=== PATIENT | female | born 1945 | race Caucasian/White ===

== ENCOUNTER 2023-01-23 15:33 | Inpatient (IN) | payer OTHER ==
[2023-01-23] MEDS ORDERED: SODIUM CHLORIDE 0.9% 500 ML INFUS.BAG IV ONE ×3 (16:19→18:13)
[2023-01-23] MEDS ORDERED: ATROPINE SULFATE 1 MG/10 ML DISP.SYRIN IVPUSH ONE ×2 (16:19→19:11)
[2023-01-23] MEDS ORDERED: ATROPINE SULFATE 1 MG/10 ML DISP.SYRIN ONE ×2 (16:20→19:14)
[2023-01-23] MEDS ORDERED: PIPERACILLIN/TAZOB 4.5 GM 4.5 GM/100 ML BAG IVPB ONE (16:52)
[2023-01-23 17:03] LABS: BASO % 0.2 % (0-2.0); HEMATOCRIT 25.6 % (32.4-45.2); HEMOGLOBIN 7.9 GM/dL (10.7-15.3); LYMPH % 6.6 % (8-40); MCH 24.1 pg (25.7-33.7); MEAN CELL VOLUME 77.8 fl (80-96); MEAN PLT VOLUME 8.2 fl (7.5-11.1); NEUT % 87.2 % (42.8-82.8); PLATELET COUNT 358 10^3/uL (134-434); RBC 3.28 M/mm3 (3.60-5.2); RDW 17.8 % (11.6-15.6); WHITE BLOOD COUNT 18.5 K/mm3 (4.0-10.0)
[2023-01-23] MEDS ORDERED: VANCOMYCIN 1 GM in D5W (PRE-DOCKED) 1,000 MG/250 ML (RESTRICTED TO ID ONLY IVPB ONE (17:09)
[2023-01-23 17:10] LABS: VENOUS BASE EXCESS -5.2 mmol/L (-2-2); VENOUS PH 7.309 (7.310-7.410)
[2023-01-23 17:13] LABS: INR 1.06 (0.83-1.09); PROTHROMBIN TIME (PATIENT) 12.3 SEC (9.7-13.0)
[2023-01-23 17:16] LABS: ACTIVATED PTT 28.4 SECONDS (25.2-36.5)
[2023-01-23] MEDS ORDERED: PIPERACILLIN/TAZOB 4.5 GM 4.5 GM in DEXTROSE 5%-WATER 100 ML IVPB ONE (17:18)
[2023-01-23 17:25] LABS: CALCIUM 9.6 mg/dL (8.5-10.1)
[2023-01-23 17:26] LABS: ALBUMIN 2.3 g/dl (3.4-5.0); MAGNESIUM 2.2 mg/dL (1.8-2.4)
[2023-01-23 17:28] LABS: BILIRUBIN,DIRECT 0.2 mg/dL (0.0-0.2)
[2023-01-23 17:29] LABS: PHOSPHOROUS 3.8 mg/dL (2.5-4.9)
[2023-01-23 17:30] LABS: BILIRUBIN,TOTAL 0.5 mg/dL (0.2-1); TOT PROT 7.7 g/dl (6.4-8.2)
[2023-01-23] MEDS ORDERED: DEXAMETHASONE SOD PHOSPHATE 10 MG/1 ML VIAL IVPUSH ONE (17:45)
[2023-01-23 17:51] LABS: EPI CELLS 8 /uL (0-25.1); HYALINE CASTS 1 /uL (0-3.1); PH,URINE 5.5 (5.0-8.0); URINE APPEARANCE TURBID; URINE BACTERIA >9,000 /uL (0-1359); URINE BILIRUBIN NEGATIVE (NEGATIVE); URINE COLOR YELLOW; URINE GLUCOSE (UA) NEGATIVE (NEGATIVE); URINE KETONE TRACE (NEGATIVE); URINE LEUK ESTERASE 3+ (NEGATIVE); URINE NITRITE NEGATIVE (NEGATIVE); URINE PROTEIN TRACE (NEGATIVE); URINE RBC 48 /uL (0-23.9); URINE UROBILINOGEN 0.2 mg/dL (0.2-1.0); URINE WBC 1598 /uL (0-25.8)
[2023-01-23] MEDS ORDERED: VANCOMYCIN/WATER FOR INJ (PEG) 1,000 MG/200 ML BAG IVPB ONE (18:13)
[2023-01-23] MEDS ORDERED: DEXAMETHASONE SOD PHOSPHATE 10 MG/1 ML VIAL ONE (18:13)
[2023-01-23] MEDS ORDERED: NOREPINEPHRINE BITARTRATE 8,000 MCG in DEXTROSE 5%-WATER - 492 ML IV SCH (18:15)
[2023-01-23] MEDS ORDERED: NOREPINEPHRINE BITARTRATE 4,000 MCG in DEXTROSE 5%-WATER - 496 ML IV SCH (18:15)
[2023-01-23] MEDS ORDERED: NOREPINEPHRINE BITARTRATE/D5W 8 MG/250 ML BAG IVPB ONE (18:48)
[2023-01-23] MEDS: NOREPINEPHRINE BITARTRATE/D5W 8 MG/250 ML BAG IVPB SCH (19:02)
[2023-01-23 20:42] LABS: YEAST NONE SEEN (NEGATIVE)
[2023-01-23] MEDS: SODIUM CHLORIDE 1,000 ML IV SCH (21:00)
[2023-01-23 21:33] LABS: MCH 23.9 pg (25.7-33.7); MCHC 30.9 g/dl (32.0-36.0); MEAN CELL VOLUME 77.4 fl (80-96); MEAN PLT VOLUME 7.8 fl (7.5-11.1); PLATELET COUNT 371 10^3/uL (134-434); RBC 3.36 M/mm3 (3.60-5.2); RDW 17.8 % (11.6-15.6); WHITE BLOOD COUNT 22.4 K/mm3 (4.0-10.0)
[2023-01-23] MEDS ORDERED: ACETAMINOPHEN INJECTION 100 ML IVPB ONE (21:55)
[2023-01-23] MEDS ORDERED: ACETAMINOPHEN 1000 MG/100 ML BAG IVPB ONE (21:55)
[2023-01-23 22:11] LABS: ERYTHROCYTE SEDIMENTATION RATE 121 mm/hr (0-30)
[2023-01-23 22:37] LABS: ANISOCYTOSIS 0; HELMET CELLS 0; HOWELL-JOLLY BODIES 0; MACROCYTOSIS 0; OVALOCYTE 0; ROULEAU 0; SICKELED CELLS 0; TARGET CELLS 0; TEAR DROP CELLS 0; TOXIC GRANULATION 0
[2023-01-24] MEDS: VASOPRESSIN 40 UNITS/100 ML BAG IV SCH ×2 (03:00→17:40)
[2023-01-24] MEDS ORDERED: ACETAMINOPHEN 1000 MG/100 ML BAG IVPB STA (06:09)
[2023-01-24] MEDS: MUPIROCIN 2% TOPICAL OINTMENT FOR DECOLONIZATION NS SCH ×3 (07:41→21:11)
[2023-01-24 08:18] LABS: HEMATOCRIT 25.2 % (32.4-45.2); MCH 24.7 pg (25.7-33.7); MCHC 31.7 g/dl (32.0-36.0); MEAN PLT VOLUME 8.6 fl (7.5-11.1); PLATELET COUNT 384 10^3/uL (134-434); RBC 3.23 M/mm3 (3.60-5.2); RDW 17.7 % (11.6-15.6)
[2023-01-24 08:37] LABS: CALCIUM 9.1 mg/dL (8.5-10.1)
[2023-01-24 08:38] LABS: BLOOD UREA NITROGEN 63.9 mg/dL (7-18); MAGNESIUM 2.2 mg/dL (1.8-2.4)
[2023-01-24 08:42] LABS: BILIRUBIN,TOTAL 0.4 mg/dL (0.2-1); TOT PROT 6.8 g/dl (6.4-8.2)
[2023-01-24 08:44] LABS: PHOSPHOROUS 4.1 mg/dL (2.5-4.9)
[2023-01-24 08:52] LABS: ALBUMIN 1.8 g/dl (3.4-5.0); CREATININE 2.8 mg/dL (0.55-1.3)
[2023-01-24] MEDS ORDERED: LEVOTHYROXINE NA 150 MCG TABLET PO ONE (09:00)
[2023-01-24 09:20] LABS: ANISOCYTOSIS 1+; MACROCYTOSIS 0
[2023-01-24] MEDS ORDERED: PIPERACILLIN/TAZOB 3.375 GM 3.375 GM in DEXTROSE 5%-WATER - 50 ML IVPB SCH (10:00)
[2023-01-24] MEDS ORDERED: LEVOTHYROXINE NA 25 MCG TABLET (FP) PO SCH (10:00)
[2023-01-24] MEDS: NOREPINEPHRINE BITARTRATE/D5W 8 MG/250 ML BAG IVPB SCH ×2 (10:06→17:07)
[2023-01-24] MEDS: HYDROCORTISONE SOD SUCCINATE 100 MG/2 ML VIAL IVPUSH SCH ×2 (10:31→17:08)
[2023-01-24] MEDS: FLUDROCORTISONE ACETATE 0.1 MG TABLET (FP) PO SCH (10:31)
[2023-01-24] MEDS: SODIUM CHLORIDE 1,000 ML IV SCH (10:45)
[2023-01-24 11:27] LABS: EPI CELLS 14 /uL (0-25.1); HYALINE CASTS 0 /uL (0-3.1); URINE APPEARANCE TURBID; URINE BACTERIA 3406 /uL (0-1359); URINE BILIRUBIN NEGATIVE (NEGATIVE); URINE COLOR YELLOW; URINE GLUCOSE (UA) NEGATIVE (NEGATIVE); URINE KETONE TRACE (NEGATIVE); URINE LEUK ESTERASE 2+ (NEGATIVE); URINE NITRITE NEGATIVE (NEGATIVE); URINE PROTEIN 1+ (NEGATIVE); URINE UROBILINOGEN 0.2 mg/dL (0.2-1.0); URINE WBC 1409 /uL (0-25.8)
[2023-01-24] MEDS ORDERED: FLU VACC QS2022-23(6MOS UP)/PF 60 MCG/0.5 ML SYRINGE IM ONE (11:30)
[2023-01-24] MEDS ORDERED: PNEUMOC 20-VAL CONJ-DIP CRM/PF 0.5 ML SYRINGE IM ONE (11:30)
[2023-01-24 11:47] LABS: URINE RBC 87.9 /uL (0-23.9)
[2023-01-24 11:48] LABS: YEAST NEGATIVE (NEGATIVE)
[2023-01-24] MEDS: PANTOPRAZOLE SODIUM 40 MG VIAL IVPUSH SCH (13:53)
[2023-01-24] MEDS: LACTATED RINGERS SOLUTION 1,000 ML/1,000 ML INFUS.BAG IV SCH (13:53)
[2023-01-24] MEDS: HEPARIN NA (PORCINE) 5,000 UNITS/ML 1ML VIAL SQ SCH ×2 (13:53→21:11)
[2023-01-24] MEDS: PIPERACILLIN/TAZOB 2.25 GM 2.25 GM in DEXTROSE 5%-WATER - 50 ML IVPB SCH ×2 (15:15→21:11)
[2023-01-24] MEDS: ACETAMINOPHEN 1000 MG/100 ML BAG IVPB PRN (15:30)
[2023-01-24] MEDS: CHLORHEXIDINE GLUCONATE 4% CLEANSER FOR DECOLONIZATION TP SCH (21:11)
[2023-01-25] MEDS: ACETAMINOPHEN 1000 MG/100 ML BAG IVPB PRN ×2 (00:09→07:42)
[2023-01-25] MEDS: NOREPINEPHRINE BITARTRATE/D5W 8 MG/250 ML BAG IVPB SCH ×3 (00:50→14:30)
[2023-01-25] MEDS: HYDROCORTISONE SOD SUCCINATE 100 MG/2 ML VIAL IVPUSH SCH ×3 (01:02→16:52)
[2023-01-25] MEDS: PIPERACILLIN/TAZOB 2.25 GM 2.25 GM in DEXTROSE 5%-WATER - 50 ML IVPB SCH ×4 (02:02→21:18)
[2023-01-25] MEDS: HEPARIN NA (PORCINE) 5,000 UNITS/ML 1ML VIAL SQ SCH ×2 (06:26→13:02)
[2023-01-25] MEDS: LEVOTHYROXINE NA 150 MCG TABLET PO SCH (06:26)
[2023-01-25] MEDS: VASOPRESSIN 40 UNITS/100 ML BAG IV SCH ×2 (06:27→07:42)
[2023-01-25 07:07] LABS: BASO % 0.1 % (0-2.0); HEMATOCRIT 24.1 % (32.4-45.2); HEMOGLOBIN 7.6 GM/dL (10.7-15.3); LYMPH % 4.4 % (8-40); MCHC 31.6 g/dl (32.0-36.0); MEAN CELL VOLUME 76.1 fl (80-96); MEAN PLT VOLUME 8.4 fl (7.5-11.1); MONO % 3.5 % (3.8-10.2); PLATELET COUNT 346 10^3/uL (134-434); RBC 3.17 M/mm3 (3.60-5.2); RDW 18.3 % (11.6-15.6)
[2023-01-25 07:29] LABS: CALCIUM 8.7 mg/dL (8.5-10.1)
[2023-01-25 07:30] LABS: ALBUMIN 1.8 g/dl (3.4-5.0); BLOOD UREA NITROGEN 65.7 mg/dL (7-18)
[2023-01-25 07:33] LABS: CREATININE 2.7 mg/dL (0.55-1.3)
[2023-01-25 07:34] LABS: BILIRUBIN,TOTAL 0.4 mg/dL (0.2-1); TOT PROT 6.6 g/dl (6.4-8.2)
[2023-01-25] MEDS ORDERED: TRIMETHOBENZAMIDE HCL 200MG/2ML INJ IM ONE (08:15)
[2023-01-25] MEDS: PANTOPRAZOLE SODIUM 40 MG VIAL IVPUSH SCH (09:14)
[2023-01-25] MEDS: MUPIROCIN 2% TOPICAL OINTMENT FOR DECOLONIZATION NS SCH ×2 (09:14→21:18)
[2023-01-25] MEDS: FLUDROCORTISONE ACETATE 0.1 MG TABLET (FP) PO SCH (09:14)
[2023-01-25] MEDS: COLLAGENASE CLOSTRIDIUM HIST. 30 GRAMS TUBE TP SCH (10:05)
[2023-01-25] MEDS: FENTANYL CITRATE/PF 50 MCG/ML VIAL IVPUSH PRN ×4 (10:11→22:35)
[2023-01-25 10:23] LABS: ANISOCYTOSIS 0; HELMET CELLS 0; HOWELL-JOLLY BODIES 0; MACROCYTOSIS 0; OVALOCYTE 0; ROULEAU 0; SICKELED CELLS 0; TARGET CELLS 0; TEAR DROP CELLS 0; TOXIC GRANULATION 0
[2023-01-25] MEDS: LACTATED RINGERS SOLUTION 1,000 ML/1,000 ML INFUS.BAG IV SCH (16:52)
[2023-01-25] MEDS ORDERED: HEPARIN NA (PORCINE) 5,000 UNITS/ML 1ML VIAL IVPUSH PRN (17:44)
[2023-01-25] MEDS: HEPARIN INFUSION - 25,000 UNITS/500 ML INFUS.BAG IVPB SCH (18:05)
[2023-01-25] MEDS: CHLORHEXIDINE GLUCONATE 4% CLEANSER FOR DECOLONIZATION TP SCH (21:18)
[2023-01-26] MEDS: ACETAMINOPHEN 1000 MG/100 ML BAG IVPB PRN ×2 (00:05→14:30)
[2023-01-26] MEDS: HEPARIN NA (PORCINE) 5,000 UNITS/ML 1ML VIAL IVPUSH PRN (00:52)
[2023-01-26] MEDS: HYDROCORTISONE SOD SUCCINATE 100 MG/2 ML VIAL IVPUSH SCH ×3 (01:12→21:03)
[2023-01-26] MEDS: PIPERACILLIN/TAZOB 2.25 GM 2.25 GM in DEXTROSE 5%-WATER - 50 ML IVPB SCH ×4 (03:43→21:00)
[2023-01-26] MEDS: LEVOTHYROXINE NA 150 MCG TABLET PO SCH (06:30)
[2023-01-26 07:12] LABS: CALCIUM 8.5 mg/dL (8.5-10.1)
[2023-01-26 07:13] LABS: ALBUMIN 1.5 g/dl (3.4-5.0); BLOOD UREA NITROGEN 63.3 mg/dL (7-18); CHOLESTEROL 67 mg/dL (50-200)
[2023-01-26 07:15] LABS: LDL CHOLESTEROL (ONLY SJRH) 30 mg/dL (5-100)
[2023-01-26 07:16] LABS: CREATININE 2.4 mg/dL (0.55-1.3)
[2023-01-26 07:17] LABS: BILIRUBIN,TOTAL 0.3 mg/dL (0.2-1); HDL CHOLESTEROL 15 mg/dL (40-60)
[2023-01-26 07:18] LABS: TOT PROT 5.7 g/dl (6.4-8.2)
[2023-01-26 08:16] LABS: BASO % 0.1 % (0-2.0); HEMATOCRIT 24.2 % (32.4-45.2); HEMOGLOBIN 7.5 GM/dL (10.7-15.3); LYMPH % 6.6 % (8-40); MCH 23.6 pg (25.7-33.7); MCHC 30.9 g/dl (32.0-36.0); MEAN CELL VOLUME 76.4 fl (80-96); MEAN PLT VOLUME 8.1 fl (7.5-11.1); MONO % 2.1 % (3.8-10.2); NEUT % 91.2 % (42.8-82.8); PLATELET COUNT 269 10^3/uL (134-434); RBC 3.17 M/mm3 (3.60-5.2); RDW 18.4 % (11.6-15.6); WHITE BLOOD COUNT 14.1 K/mm3 (4.0-10.0)
[2023-01-26] MEDS ORDERED: PIPERACILLIN/TAZOBACTAM 2.25 GM VIAL IVPB ONE (09:04)
[2023-01-26] MEDS: FLUDROCORTISONE ACETATE 0.1 MG TABLET (FP) PO SCH (09:16)
[2023-01-26] MEDS: MUPIROCIN 2% TOPICAL OINTMENT FOR DECOLONIZATION NS SCH ×2 (09:17→21:03)
[2023-01-26] MEDS: COLLAGENASE CLOSTRIDIUM HIST. 30 GRAMS TUBE TP SCH (09:17)
[2023-01-26] MEDS: VASOPRESSIN 40 UNITS/100 ML BAG IV SCH (09:17)
[2023-01-26] MEDS: PANTOPRAZOLE SODIUM 40 MG VIAL IVPUSH SCH (09:17)
[2023-01-26 10:16] LABS: ANISOCYTOSIS 2+; MACROCYTOSIS 1+
[2023-01-26] MEDS: NOREPINEPHRINE BITARTRATE/D5W 8 MG/250 ML BAG IVPB SCH ×2 (15:01→21:01)
[2023-01-26] MEDS: HEPARIN INFUSION - 25,000 UNITS/500 ML INFUS.BAG IVPB SCH ×2 (15:01→21:02)
[2023-01-26] MEDS: AMINO ACIDS/PROTEIN HYDROLYS 30 ML LIQUID.PKT PO SCH (16:36)
[2023-01-26] MEDS: LACTATED RINGERS SOLUTION 1,000 ML/1,000 ML INFUS.BAG IV SCH (21:02)
[2023-01-26] MEDS: CHLORHEXIDINE GLUCONATE 4% CLEANSER FOR DECOLONIZATION TP SCH (21:03)
[2023-01-26] MEDS: ASCORBIC ACID 500 MG TABLET (FP) PO SCH (21:04)
[2023-01-27] MEDS: VASOPRESSIN 40 UNITS/100 ML BAG IV SCH (02:15)
[2023-01-27] MEDS: PIPERACILLIN/TAZOB 2.25 GM 2.25 GM in DEXTROSE 5%-WATER - 50 ML IVPB SCH ×4 (02:16→21:11)
[2023-01-27] MEDS: LEVOTHYROXINE NA 150 MCG TABLET PO SCH (06:06)
[2023-01-27 06:34] LABS: HEMATOCRIT 24.5 % (32.4-45.2); HEMOGLOBIN 7.7 GM/dL (10.7-15.3); MCH 24.2 pg (25.7-33.7); MCHC 31.3 g/dl (32.0-36.0); MEAN CELL VOLUME 77.3 fl (80-96); MEAN PLT VOLUME 7.9 fl (7.5-11.1); PLATELET COUNT 229 10^3/uL (134-434); RBC 3.16 M/mm3 (3.60-5.2); RDW 18.5 % (11.6-15.6); WHITE BLOOD COUNT 12.2 K/mm3 (4.0-10.0)
[2023-01-27 06:55] LABS: CHLORIDE 111 mmol/L (98-107); SODIUM 140 mmol/L (136-145)
[2023-01-27 07:04] LABS: ALBUMIN 1.2 g/dl (3.4-5.0); ANION GAP 9 MMOL/L (8-16); BLOOD UREA NITROGEN 66.5 mg/dL (7-18); CALCIUM 8.5 mg/dL (8.5-10.1); CO2 20 mmol/L (21-32); GLUCOSE,RANDOM 80 mg/dL (74-106)
[2023-01-27 07:07] LABS: CREATININE 2.4 mg/dL (0.55-1.3); SGPT/ALT 11 U/L (13-61)
[2023-01-27 07:08] LABS: SGOT/AST 14 U/L (15-37)
[2023-01-27 07:09] LABS: BILIRUBIN,TOTAL 0.3 mg/dL (0.2-1); TOT PROT 5.1 g/dl (6.4-8.2)
[2023-01-27 07:12] LABS: ALK PHOS 96 U/L (45-117)
[2023-01-27] MEDS: HEPARIN NA (PORCINE) 5,000 UNITS/ML 1ML VIAL IVPUSH PRN (07:38)
[2023-01-27] MEDS ORDERED: ACETAMINOPHEN 1000 MG/100 ML BAG IVPB PRN (07:44)
[2023-01-27 09:01] LABS: ANISOCYTOSIS 1+; MACROCYTOSIS 0
[2023-01-27] MEDS: HYDROCORTISONE SOD SUCCINATE 100 MG/2 ML VIAL IVPUSH SCH ×2 (09:25→21:12)
[2023-01-27] MEDS: ASCORBIC ACID 500 MG TABLET (FP) PO SCH ×2 (09:25→21:12)
[2023-01-27] MEDS: ACETAMINOPHEN 1000 MG/100 ML BAG IVPB PRN ×2 (09:25→17:23)
[2023-01-27] MEDS: MULTIVITAMINS (DAILY MVI) TABLET (FP) PO SCH (09:25)
[2023-01-27] MEDS: PANTOPRAZOLE SODIUM 40 MG VIAL IVPUSH SCH (09:25)
[2023-01-27] MEDS: AMINO ACIDS/PROTEIN HYDROLYS 30 ML LIQUID.PKT PO SCH ×2 (09:25→17:06)
[2023-01-27] MEDS: FLUDROCORTISONE ACETATE 0.1 MG TABLET (FP) PO SCH ×2 (09:25→12:02)
[2023-01-27] MEDS: ZINC SULFATE 220 MG CAPSULE (FP) PO SCH (09:26)
[2023-01-27] MEDS: MUPIROCIN 2% TOPICAL OINTMENT FOR DECOLONIZATION NS SCH ×2 (09:26→21:12)
[2023-01-27] MEDS: COLLAGENASE CLOSTRIDIUM HIST. 30 GRAMS TUBE TP SCH (09:26)
[2023-01-27] MEDS: LACTATED RINGERS SOLUTION 1,000 ML/1,000 ML INFUS.BAG IV SCH ×2 (09:26→14:27)
[2023-01-27] MEDS ORDERED: LACTATED RINGERS SOLUTION 1,000 ML/1,000 ML INFUS.BAG IV STA (10:16)
[2023-01-27] MEDS ORDERED: LACTATED RINGERS SOLUTION 1,000 ML/1,000 ML INFUS.BAG IV ONE (10:18)
[2023-01-27] MEDS: FENTANYL CITRATE/PF 50 MCG/ML VIAL IVPUSH PRN ×2 (12:02→15:52)
[2023-01-27] MEDS: HEPARIN INFUSION - 25,000 UNITS/500 ML INFUS.BAG IVPB SCH ×2 (14:29→19:15)
[2023-01-27] MEDS ORDERED: FENTANYL CITRATE/PF 50 MCG/ML VIAL IVPUSH ONE (18:06)
[2023-01-27] MEDS: NOREPINEPHRINE BITARTRATE/D5W 8 MG/250 ML BAG IVPB SCH (19:15)
[2023-01-27] MEDS: CHLORHEXIDINE GLUCONATE 4% CLEANSER FOR DECOLONIZATION TP SCH (21:12)
[2023-01-28] MEDS: FENTANYL CITRATE/PF 50 MCG/ML VIAL IVPUSH PRN (01:58)
[2023-01-28] MEDS: VASOPRESSIN 40 UNITS/100 ML BAG IV SCH (02:15)
[2023-01-28] MEDS: PIPERACILLIN/TAZOB 2.25 GM 2.25 GM in DEXTROSE 5%-WATER - 50 ML IVPB SCH ×4 (02:41→21:00)
[2023-01-28] MEDS: LEVOTHYROXINE NA 150 MCG TABLET PO SCH (06:05)
[2023-01-28] MEDS: ACETAMINOPHEN 1000 MG/100 ML BAG IVPB PRN ×2 (06:49→15:44)
[2023-01-28 07:14] LABS: MCH 23.3 pg (25.7-33.7); MCHC 30.5 g/dl (32.0-36.0); MEAN CELL VOLUME 76.4 fl (80-96); MEAN PLT VOLUME 8.9 fl (7.5-11.1); PLATELET COUNT 190 10^3/uL (134-434); RDW 18.4 % (11.6-15.6); WHITE BLOOD COUNT 11.1 K/mm3 (4.0-10.0)
[2023-01-28 07:26] LABS: CALCIUM 8.5 mg/dL (8.5-10.1)
[2023-01-28 07:27] LABS: ALBUMIN 1.2 g/dl (3.4-5.0); BLOOD UREA NITROGEN 72.7 mg/dL (7-18)
[2023-01-28 07:30] LABS: CREATININE 2.7 mg/dL (0.55-1.3)
[2023-01-28 07:32] LABS: BILIRUBIN,TOTAL 0.3 mg/dL (0.2-1); TOT PROT 5.1 g/dl (6.4-8.2)
[2023-01-28] MEDS: AMINO ACIDS/PROTEIN HYDROLYS 30 ML LIQUID.PKT PO SCH ×2 (08:55→17:44)
[2023-01-28] MEDS: MUPIROCIN 2% TOPICAL OINTMENT FOR DECOLONIZATION NS SCH (09:07)
[2023-01-28] MEDS: HYDROCORTISONE SOD SUCCINATE 100 MG/2 ML VIAL IVPUSH SCH ×2 (09:08→22:00)
[2023-01-28] MEDS: ASCORBIC ACID 500 MG TABLET (FP) PO SCH ×2 (09:08→22:33)
[2023-01-28] MEDS: PANTOPRAZOLE SODIUM 40 MG VIAL IVPUSH SCH (09:08)
[2023-01-28] MEDS: FLUDROCORTISONE ACETATE 0.1 MG TABLET (FP) PO SCH (09:08)
[2023-01-28] MEDS: MULTIVITAMINS (DAILY MVI) TABLET (FP) PO SCH (09:08)
[2023-01-28] MEDS: ZINC SULFATE 220 MG CAPSULE (FP) PO SCH (09:08)
[2023-01-28 09:09] LABS: ANISOCYTOSIS 0; HELMET CELLS 0; HOWELL-JOLLY BODIES 0; MACROCYTOSIS 0; OVALOCYTE 0; ROULEAU 0; SICKELED CELLS 0; TARGET CELLS 0; TEAR DROP CELLS 0; TOXIC GRANULATION 0
[2023-01-28] MEDS: COLLAGENASE CLOSTRIDIUM HIST. 30 GRAMS TUBE TP SCH (09:09)
[2023-01-28] MEDS: HYDROmorphone HCl 2 MG/ML VIAL IVPUSH PRN ×2 (09:34→19:45)
[2023-01-28] MEDS: HEPARIN INFUSION - 25,000 UNITS/500 ML INFUS.BAG IVPB SCH (17:44)
[2023-01-28] MEDS: CHLORHEXIDINE GLUCONATE 4% CLEANSER FOR DECOLONIZATION TP SCH (22:00)
[2023-01-28] MEDS ORDERED: SODIUM CHLORIDE 1,000 ML IV STA (22:30)
[2023-01-29] MEDS ORDERED: PHENYLEPHRINE HCL 10 MG/1 ML SINGLE DOSE VIAL ONE ×2 (00:28→06:12)
[2023-01-29] MEDS ORDERED: PHENYLEPHRINE NS PREMIX 50,000 MCG/500 ML BAG CVP SCH (00:30)
[2023-01-29] MEDS: PIPERACILLIN/TAZOB 2.25 GM 2.25 GM in DEXTROSE 5%-WATER - 50 ML IVPB SCH ×2 (02:01→09:11)
[2023-01-29] MEDS: LEVOTHYROXINE NA 150 MCG TABLET PO SCH (06:21)
[2023-01-29 07:44] LABS: HEMOGLOBIN 9.5 GM/dL (10.7-15.3); MCH 24.3 pg (25.7-33.7); MCHC 31.5 g/dl (32.0-36.0); MEAN PLT VOLUME 8.6 fl (7.5-11.1); PLATELET COUNT 300 10^3/uL (134-434); RDW 18.6 % (11.6-15.6); WHITE BLOOD COUNT 27.4 K/mm3 (4.0-10.0)
[2023-01-29 07:58] LABS: CALCIUM 9.3 mg/dL (8.5-10.1)
[2023-01-29 08:01] LABS: ALBUMIN 1.4 g/dl (3.4-5.0)
[2023-01-29 08:02] LABS: BLOOD UREA NITROGEN 77.9 mg/dL (7-18)
[2023-01-29 08:05] LABS: CREATININE 2.8 mg/dL (0.55-1.3)
[2023-01-29 08:06] LABS: BILIRUBIN,TOTAL 0.5 mg/dL (0.2-1); TOT PROT 5.8 g/dl (6.4-8.2)
[2023-01-29 08:30] LABS: ANISOCYTOSIS 0; HELMET CELLS 0; HOWELL-JOLLY BODIES 0; MACROCYTOSIS 0; OVALOCYTE 0; ROULEAU 0; SICKELED CELLS 0; TARGET CELLS 0; TEAR DROP CELLS 0; TOXIC GRANULATION 0
[2023-01-29] MEDS: AMINO ACIDS/PROTEIN HYDROLYS 30 ML LIQUID.PKT PO SCH ×2 (08:50→17:08)
[2023-01-29] MEDS: PANTOPRAZOLE SODIUM 40 MG VIAL IVPUSH SCH (09:11)
[2023-01-29] MEDS: HYDROCORTISONE SOD SUCCINATE 100 MG/2 ML VIAL IVPUSH SCH (09:11)
[2023-01-29] MEDS: ASCORBIC ACID 500 MG TABLET (FP) PO SCH (09:12)
[2023-01-29] MEDS: MIDODRINE HCL 5 MG TABLET PO SCH ×2 (09:12→14:03)
[2023-01-29] MEDS: ZINC SULFATE 220 MG CAPSULE (FP) PO SCH (09:13)
[2023-01-29] MEDS: MULTIVITAMINS (DAILY MVI) TABLET (FP) PO SCH (09:13)
[2023-01-29] MEDS: FLUDROCORTISONE ACETATE 0.1 MG TABLET (FP) PO SCH (09:14)
[2023-01-29] MEDS ORDERED: NOREPINEPHRINE 0.9 % NACL 8 MG/250 ML BAG IVPB SCH (10:45)
[2023-01-29] MEDS ORDERED: MEROPENEM 500 MG in DEXTROSE 5%-WATER 100 ML IVPB SCH (11:00)
[2023-01-29] MEDS: ACETAMINOPHEN 1000 MG/100 ML BAG IVPB PRN (11:58)
[2023-01-29] MEDS: COLLAGENASE CLOSTRIDIUM HIST. 30 GRAMS TUBE TP SCH (14:55)
[2023-01-29] MEDS ORDERED: VANCOMYCIN/WATER FOR INJ (PEG) 1,000 MG/200 ML BAG IVPB ONE (14:58)
[2023-01-29] MEDS ORDERED: HYDROmorphone HCl 2 MG/ML VIAL IVPUSH PRN (17:04)
[2023-01-29] MEDS ORDERED: ROCURONIUM BROMIDE 50 MG/5 ML SYRINGE ONE ×3 (17:09→20:37)
[2023-01-29] MEDS ORDERED: LIDOCAINE HCL/PF 2% SDV 5ML VIAL ONE (17:10)
[2023-01-29] MEDS ORDERED: ETOMIDATE 20 MG/10 ML VIAL IVPUSH ONE (17:10)
[2023-01-29] MEDS ORDERED: MIDAZOLAM HCL 2 MG/2 ML SINGLE DOSE VIAL ONE ×2 (18:40→20:36)
[2023-01-29] MEDS ORDERED: ALBUMIN HUMAN 5% 250 ML IV SOLUTION IV ONE ×4 (20:45→22:30)
[2023-01-29] MEDS ORDERED: PROMETHAZINE HCL 25 MG/1 ML VIAL IVPB PRN (22:35)
[2023-01-29] MEDS ORDERED: ONDANSETRON 4 MG/2 ML VIAL IVPUSH PRN (22:35)
[2023-01-29] MEDS ORDERED: ACETAMINOPHEN 1000 MG/100 ML BAG IVPB PRN (22:42)
[2023-01-29] MEDS ORDERED: SODIUM CHLORIDE 1,000 ML IV SCH (22:45)
[2023-01-29] MEDS ORDERED: MEROPENEM 1 GM in DEXTROSE 5%-WATER 100 ML IVPB SCH (23:00)
[2023-01-29] MEDS: NOREPINEPHRINE 0.9 % NACL 8 MG/250 ML BAG IVPB SCH (23:22)
[2023-01-29] MEDS: MEROPENEM 1 GM in DEXTROSE 5%-WATER 100 ML IVPB SCH (23:22)
[2023-01-29] MEDS: VASOPRESSIN 40 UNITS/100 ML BAG IV SCH ×2 (23:23)
[2023-01-29 23:24] LABS: BASO % 0.1 % (0-2.0); LYMPH % 3.2 % (8-40); MCH 23.5 pg (25.7-33.7); MCHC 29.8 g/dl (32.0-36.0); MEAN CELL VOLUME 78.9 fl (80-96); MEAN PLT VOLUME 7.8 fl (7.5-11.1); NEUT % 94.7 % (42.8-82.8); PLATELET COUNT 257 10^3/uL (134-434); RBC 3.42 M/mm3 (3.60-5.2); RDW 18.5 % (11.6-15.6)
[2023-01-29] MEDS: SODIUM CHLORIDE 1,000 ML IV SCH (23:24)
[2023-01-29 23:25] LABS: WHITE BLOOD COUNT 34.7 K/mm3 (4.0-10.0)
[2023-01-29 23:48] LABS: CALCIUM 8.4 mg/dL (8.5-10.1)
[2023-01-29 23:49] LABS: BLOOD UREA NITROGEN 80.3 mg/dL (7-18)
[2023-01-29 23:52] LABS: CREATININE 2.9 mg/dL (0.55-1.3)
[2023-01-30] MEDS: NOREPINEPHRINE 0.9 % NACL 8 MG/250 ML BAG IVPB SCH ×5 (06:13→23:15)
[2023-01-30 07:03] LABS: BASO % 0.1 % (0-2.0); HEMATOCRIT 26.5 % (32.4-45.2); HEMOGLOBIN 8.1 GM/dL (10.7-15.3); LYMPH % 3.3 % (8-40); MCH 24.1 pg (25.7-33.7); MCHC 30.4 g/dl (32.0-36.0); MEAN CELL VOLUME 79.1 fl (80-96); MEAN PLT VOLUME 8.3 fl (7.5-11.1); MONO % 2.2 % (3.8-10.2); NEUT % 94.4 % (42.8-82.8); PLATELET COUNT 262 10^3/uL (134-434); RBC 3.35 M/mm3 (3.60-5.2); RDW 18.8 % (11.6-15.6)
[2023-01-30 07:14] LABS: WHITE BLOOD COUNT 33.2 K/mm3 (4.0-10.0)
[2023-01-30 07:23] LABS: BLOOD UREA NITROGEN 81.9 mg/dL (7-18); CALCIUM 8.8 mg/dL (8.5-10.1)
[2023-01-30 07:27] LABS: BILIRUBIN,TOTAL 0.4 mg/dL (0.2-1); TOT PROT 5.2 g/dl (6.4-8.2)
[2023-01-30 07:29] LABS: ALBUMIN 1.9 g/dl (3.4-5.0)
[2023-01-30 08:46] LABS: ANISOCYTOSIS 1+; MACROCYTOSIS 0
[2023-01-30] MEDS ORDERED: SODIUM CHLORIDE 1,000 ML IV STA (09:01)
[2023-01-30] MEDS: MUPIROCIN 2% TOPICAL OINTMENT FOR DECOLONIZATION NS SCH ×2 (09:55→21:46)
[2023-01-30] MEDS ORDERED: HYDROCORTISONE SOD SUCCINATE 100 MG/2 ML VIAL IVPUSH SCH (10:00)
[2023-01-30] MEDS: PANTOPRAZOLE SODIUM 40 MG VIAL IVPUSH SCH (10:40)
[2023-01-30] MEDS: COLLAGENASE CLOSTRIDIUM HIST. 30 GRAMS TUBE TP SCH (10:40)
[2023-01-30] MEDS: HEPARIN NA (PORCINE) 5,000 UNITS/ML 1ML VIAL SQ SCH ×2 (10:40→21:47)
[2023-01-30] MEDS: MEROPENEM 1 GM in DEXTROSE 5%-WATER 100 ML IVPB SCH ×2 (11:28→22:07)
[2023-01-30] MEDS: HYDROCORTISONE SOD SUCCINATE 100 MG/2 ML VIAL IVPUSH SCH ×2 (15:49→21:46)
[2023-01-30 16:02] VITALS: BMI 44.8
[2023-01-30] MEDS: HYDROmorphone HCl 2 MG/ML VIAL IVPUSH PRN ×2 (16:39→21:58)
[2023-01-30] MEDS ORDERED: VANCOMYCIN 1 GM/200 ML PREMIX BAG (RESTRICTED TO ID ONLY) IVPB ONE (18:31)
[2023-01-30] MEDS: LEVOTHYROXINE SODIUM 100 MCG 5 ML VIAL IVPUSH SCH (18:59)
[2023-01-30] MEDS ORDERED: LACTATED RINGERS SOLUTION 1000 ML INFUS.BAG IV ONE (19:25)
[2023-01-30] MEDS: CHLORHEXIDINE GLUCONATE 4% CLEANSER FOR DECOLONIZATION TP SCH (21:47)
[2023-01-30] MEDS: VASOPRESSIN 40 UNITS/100 ML BAG IV SCH (23:00)
[2023-01-30] MEDS: SODIUM CHLORIDE 1,000 ML IV SCH (23:45)
[2023-01-31] MEDS: HYDROCORTISONE SOD SUCCINATE 100 MG/2 ML VIAL IVPUSH SCH ×4 (02:05→21:49)
[2023-01-31] MEDS: NOREPINEPHRINE 0.9 % NACL 8 MG/250 ML BAG IVPB SCH ×3 (02:10→22:25)
[2023-01-31] MEDS: SODIUM CHLORIDE 1,000 ML IV SCH ×2 (04:35→10:22)
[2023-01-31] MEDS: HYDROmorphone HCl 2 MG/ML VIAL IVPUSH PRN (04:48)
[2023-01-31 08:04] LABS: ALBUMIN 1.6 g/dl (3.4-5.0); BLOOD UREA NITROGEN 82.4 mg/dL (7-18); CALCIUM 8.7 mg/dL (8.5-10.1)
[2023-01-31 08:08] LABS: CREATININE 2.6 mg/dL (0.55-1.3)
[2023-01-31 08:09] LABS: HEMATOCRIT 26.7 % (32.4-45.2); MCH 23.8 pg (25.7-33.7); MCHC 30.1 g/dl (32.0-36.0); MEAN CELL VOLUME 78.8 fl (80-96); MEAN PLT VOLUME 7.9 fl (7.5-11.1); PLATELET COUNT 210 10^3/uL (134-434); RBC 3.38 M/mm3 (3.60-5.2); RDW 18.8 % (11.6-15.6); WHITE BLOOD COUNT 28.6 K/mm3 (4.0-10.0)
[2023-01-31 08:10] LABS: BILIRUBIN,TOTAL 0.5 mg/dL (0.2-1); INR 1.16 (0.83-1.09); PROTHROMBIN TIME (PATIENT) 13.4 SEC (9.7-13.0); TOT PROT 5.2 g/dl (6.4-8.2)
[2023-01-31 08:13] LABS: ACTIVATED PTT 32.7 SECONDS (25.2-36.5)
[2023-01-31] MEDS: HEPARIN NA (PORCINE) 5,000 UNITS/ML 1ML VIAL SQ SCH ×2 (09:20→21:50)
[2023-01-31] MEDS: PANTOPRAZOLE SODIUM 40 MG VIAL IVPUSH SCH (09:24)
[2023-01-31] MEDS: LEVOTHYROXINE SODIUM 100 MCG 5 ML VIAL IVPUSH SCH (09:25)
[2023-01-31] MEDS: VASOPRESSIN 40 UNITS/100 ML BAG IV SCH ×3 (09:26→22:30)
[2023-01-31 10:05] LABS: ANISOCYTOSIS 0; HELMET CELLS 0; HOWELL-JOLLY BODIES 0; MACROCYTOSIS 0; OVALOCYTE 0; ROULEAU 0; SICKELED CELLS 0; TARGET CELLS 0; TEAR DROP CELLS 0; TOXIC GRANULATION 0
[2023-01-31] MEDS: MEROPENEM 1 GM in DEXTROSE 5%-WATER 100 ML IVPB SCH ×2 (10:19→22:00)
[2023-01-31] MEDS: MUPIROCIN 2% TOPICAL OINTMENT FOR DECOLONIZATION NS SCH ×2 (10:20→21:50)
[2023-01-31] MEDS: COLLAGENASE CLOSTRIDIUM HIST. 30 GRAMS TUBE TP SCH (10:21)
[2023-01-31] MEDS ORDERED: MIDAZOLAM 100 MG in SODIUM CHLORIDE 100 ML IVPB SCH (12:00)
[2023-01-31] MEDS ORDERED: FENTANYL NS IVPB 500 MCG/100 ML BAG IVPB SCH ×2 (12:00→15:04)
[2023-01-31] MEDS ORDERED: MIDAZOLAM IN 0.9 % SOD.CHLORID 100 MG/100 ML PLAST..BAG IVPB SCH (12:17)
[2023-01-31 12:26] LABS: MAGNESIUM 2.2 mg/dL (1.8-2.4)
[2023-01-31 12:53] LABS: ARTERIAL BLD GAS O2 SATURATION 99.1 % (95-98); ARTERIAL BLOOD GAS BASE EXCESS -10.5 mmol/L (-2-2); ARTERIAL BLOOD GAS PO2 179.4 mmHg (80-100); ARTERIAL BLOOD GAS pH 7.297 (7.350-7.450)
[2023-01-31 12:55] LABS: ALLENS TEST POSITIVE
[2023-01-31 12:56] LABS: VENT MODE AC; VENT RATE 12
[2023-01-31] MEDS: KCL 10 MEQ IVPB 10 MEQ/100 ML INFUS.BAG IVPB SCH ×3 (14:38→16:25)
[2023-01-31] MEDS ORDERED: AMINO ACIDS 4.25%/D5W 1,000 ML IV SCH (14:45)
[2023-01-31] MEDS ORDERED: MIDAZOLAM IN 0.9 % SOD.CHLORID 1 MG/1 ML PLAST..BAG ONE (14:46)
[2023-01-31] MEDS: FENTANYL NS IVPB 500 MCG/100 ML BAG IVPB SCH ×2 (15:00→23:30)
[2023-01-31] MEDS ORDERED: MULTIVIT INJ. ADULT COMBO WITH VIT K 1 COMBO 10 ML VIAL IV SCH (15:00)
[2023-01-31 20:11] LABS: ANTIGLOMERULAR BASEMENT MEN.AB <0.2 units (0.0-0.9)
[2023-01-31] MEDS: CHLORHEXIDINE GLUCONATE 4% CLEANSER FOR DECOLONIZATION TP SCH (21:51)
[2023-02-01] MEDS: SODIUM CHLORIDE 1,000 ML IV SCH ×2 (01:30→11:23)
[2023-02-01] MEDS: HYDROCORTISONE SOD SUCCINATE 100 MG/2 ML VIAL IVPUSH SCH ×4 (02:40→21:32)
[2023-02-01] MEDS: NOREPINEPHRINE 0.9 % NACL 8 MG/250 ML BAG IVPB SCH (04:39)
[2023-02-01 08:15] LABS: HEMATOCRIT 26.7 % (32.4-45.2); HEMOGLOBIN 8.1 GM/dL (10.7-15.3); MCH 23.8 pg (25.7-33.7); MCHC 30.3 g/dl (32.0-36.0); MEAN CELL VOLUME 78.8 fl (80-96); MEAN PLT VOLUME 8.1 fl (7.5-11.1); PLATELET COUNT 192 10^3/uL (134-434); RBC 3.38 M/mm3 (3.60-5.2); RDW 19.6 % (11.6-15.6); WHITE BLOOD COUNT 27.8 K/mm3 (4.0-10.0)
[2023-02-01 08:26] LABS: CALCIUM 9.1 mg/dL (8.5-10.1)
[2023-02-01 08:27] LABS: MAGNESIUM 2.3 mg/dL (1.8-2.4)
[2023-02-01 08:29] LABS: ALBUMIN 1.6 g/dl (3.4-5.0); BLOOD UREA NITROGEN 85.2 mg/dL (7-18)
[2023-02-01 08:30] LABS: CREATININE 2.1 mg/dL (0.55-1.3)
[2023-02-01 08:32] LABS: BILIRUBIN,TOTAL 0.4 mg/dL (0.2-1); TOT PROT 5.2 g/dl (6.4-8.2)
[2023-02-01 10:32] LABS: ANISOCYTOSIS 2+; MACROCYTOSIS 0
[2023-02-01] MEDS: MEROPENEM 1 GM in DEXTROSE 5%-WATER 100 ML IVPB SCH ×2 (11:19→23:20)
[2023-02-01] MEDS: PANTOPRAZOLE SODIUM 40 MG VIAL IVPUSH SCH (11:22)
[2023-02-01] MEDS: MUPIROCIN 2% TOPICAL OINTMENT FOR DECOLONIZATION NS SCH ×2 (11:22→21:33)
[2023-02-01] MEDS: COLLAGENASE CLOSTRIDIUM HIST. 30 GRAMS TUBE TP SCH (11:23)
[2023-02-01] MEDS: HEPARIN NA (PORCINE) 5,000 UNITS/ML 1ML VIAL SQ SCH ×2 (11:24→21:33)
[2023-02-01] MEDS: LEVOTHYROXINE SODIUM 100 MCG 5 ML VIAL IVPUSH SCH (11:25)
[2023-02-01] MEDS ORDERED: SODIUM CHLORIDE 1,000 ML IV SCH (11:41)
[2023-02-01] MEDS ORDERED: AMINO ACIDS 4.25%/D5W 1,000 ML IV SCH (11:45)
[2023-02-01 15:27] LABS: ATYPICAL pANCA <1:20 titer (Neg:<1:20); C-ANCA <1:20 titer (Neg:<1:20)
[2023-02-01] MEDS: MIDAZOLAM IN 0.9 % SOD.CHLORID 100 MG/100 ML PLAST..BAG IVPB SCH (15:58)
[2023-02-01] MEDS: FENTANYL NS IVPB 500 MCG/100 ML BAG IVPB SCH (18:29)
[2023-02-01] MEDS: CHLORHEXIDINE GLUCONATE 4% CLEANSER FOR DECOLONIZATION TP SCH (21:33)
[2023-02-02] MEDS: VASOPRESSIN 40 UNITS/100 ML BAG IV SCH (00:56)
[2023-02-02] MEDS: NOREPINEPHRINE 0.9 % NACL 8 MG/250 ML BAG IVPB SCH (00:57)
[2023-02-02] MEDS: HYDROCORTISONE SOD SUCCINATE 100 MG/2 ML VIAL IVPUSH SCH ×4 (03:05→21:23)
[2023-02-02 07:35] LABS: HEMATOCRIT 24.8 % (32.4-45.2); HEMOGLOBIN 7.4 GM/dL (10.7-15.3); MCH 23.3 pg (25.7-33.7); MCHC 29.7 g/dl (32.0-36.0); MEAN CELL VOLUME 78.5 fl (80-96); MEAN PLT VOLUME 8.3 fl (7.5-11.1); PLATELET COUNT 176 10^3/uL (134-434); RBC 3.15 M/mm3 (3.60-5.2); WHITE BLOOD COUNT 23.2 K/mm3 (4.0-10.0)
[2023-02-02 07:51] LABS: CALCIUM 8.7 mg/dL (8.5-10.1)
[2023-02-02 07:53] LABS: ALBUMIN 1.5 g/dl (3.4-5.0); BLOOD UREA NITROGEN 75.6 mg/dL (7-18); MAGNESIUM 2.1 mg/dL (1.8-2.4)
[2023-02-02 07:54] LABS: CREATININE 1.7 mg/dL (0.55-1.3); PHOSPHOROUS 4.1 mg/dL (2.5-4.9)
[2023-02-02 07:55] LABS: BILIRUBIN,TOTAL 0.3 mg/dL (0.2-1); TOT PROT 5.1 g/dl (6.4-8.2)
[2023-02-02] MEDS: MUPIROCIN 2% TOPICAL OINTMENT FOR DECOLONIZATION NS SCH ×2 (10:29→21:23)
[2023-02-02] MEDS: HEPARIN NA (PORCINE) 5,000 UNITS/ML 1ML VIAL SQ SCH ×2 (10:30→21:23)
[2023-02-02] MEDS: PANTOPRAZOLE SODIUM 40 MG VIAL IVPUSH SCH (10:30)
[2023-02-02] MEDS: MEROPENEM 1 GM in DEXTROSE 5%-WATER 100 ML IVPB SCH ×2 (10:31→22:29)
[2023-02-02] MEDS ORDERED: FUROSEMIDE 40 MG/4 ML INJECTABLE VIAL IVPUSH ONE (11:06)
[2023-02-02] MEDS: LEVOTHYROXINE SODIUM 100 MCG 5 ML VIAL IVPUSH SCH (11:21)
[2023-02-02] MEDS: COLLAGENASE CLOSTRIDIUM HIST. 30 GRAMS TUBE TP SCH (11:27)
[2023-02-02] MEDS: CHLORHEXIDINE GLUCONATE 4% CLEANSER FOR DECOLONIZATION TP SCH (21:24)
[2023-02-03] MEDS: FENTANYL NS IVPB 500 MCG/100 ML BAG IVPB SCH (02:53)
[2023-02-03] MEDS: MIDAZOLAM IN 0.9 % SOD.CHLORID 100 MG/100 ML PLAST..BAG IVPB SCH ×2 (02:53→14:34)
[2023-02-03] MEDS: NOREPINEPHRINE 0.9 % NACL 8 MG/250 ML BAG IVPB SCH (02:54)
[2023-02-03] MEDS: HYDROCORTISONE SOD SUCCINATE 100 MG/2 ML VIAL IVPUSH SCH ×4 (02:54→21:24)
[2023-02-03] MEDS: VASOPRESSIN 40 UNITS/100 ML BAG IV SCH (02:54)
[2023-02-03 07:07] LABS: HEMATOCRIT 26.3 % (32.4-45.2); HEMOGLOBIN 8.2 GM/dL (10.7-15.3); MCH 24.6 pg (25.7-33.7); MEAN CELL VOLUME 79.2 fl (80-96); MEAN PLT VOLUME 8.9 fl (7.5-11.1); PLATELET COUNT 195 10^3/uL (134-434); RBC 3.32 M/mm3 (3.60-5.2); RDW 19.2 % (11.6-15.6)
[2023-02-03 07:42] LABS: CALCIUM 9.5 mg/dL (8.5-10.1)
[2023-02-03 07:43] LABS: ALBUMIN 1.6 g/dl (3.4-5.0); BLOOD UREA NITROGEN 73.7 mg/dL (7-18)
[2023-02-03 07:46] LABS: CREATININE 1.4 mg/dL (0.55-1.3)
[2023-02-03 07:47] LABS: TOT PROT 5.4 g/dl (6.4-8.2)
[2023-02-03 07:48] LABS: BILIRUBIN,TOTAL 0.3 mg/dL (0.2-1)
[2023-02-03 08:59] LABS: ANISOCYTOSIS 2+; MACROCYTOSIS 1+
[2023-02-03] MEDS: PANTOPRAZOLE SODIUM 40 MG VIAL IVPUSH SCH (09:29)
[2023-02-03] MEDS: LEVOTHYROXINE SODIUM 100 MCG 5 ML VIAL IVPUSH SCH (09:29)
[2023-02-03] MEDS: HEPARIN NA (PORCINE) 5,000 UNITS/ML 1ML VIAL SQ SCH ×2 (09:29→21:24)
[2023-02-03] MEDS: COLLAGENASE CLOSTRIDIUM HIST. 30 GRAMS TUBE TP SCH (09:41)
[2023-02-03] MEDS: MUPIROCIN 2% TOPICAL OINTMENT FOR DECOLONIZATION NS SCH ×2 (09:41→21:24)
[2023-02-03] MEDS: MEROPENEM 1 GM in DEXTROSE 5%-WATER 100 ML IVPB SCH ×2 (10:11→23:20)
[2023-02-03] MEDS: AMINO ACIDS/PROTEIN HYDROLYS 30 ML LIQUID.PKT PO SCH (17:15)
[2023-02-03] MEDS: CHLORHEXIDINE GLUCONATE 4% CLEANSER FOR DECOLONIZATION TP SCH (21:24)
[2023-02-04] MEDS: HYDROCORTISONE SOD SUCCINATE 100 MG/2 ML VIAL IVPUSH SCH ×3 (03:14→22:29)
[2023-02-04] MEDS: VASOPRESSIN 40 UNITS/100 ML BAG IV SCH ×2 (03:14→23:00)
[2023-02-04] MEDS: NOREPINEPHRINE 0.9 % NACL 8 MG/250 ML BAG IVPB SCH ×2 (03:15→04:34)
[2023-02-04 07:31] LABS: BASO % 0.1 % (0-2.0); HEMOGLOBIN 8.1 GM/dL (10.7-15.3); LYMPH % 1.5 % (8-40); MCH 24.5 pg (25.7-33.7); MEAN PLT VOLUME 9.3 fl (7.5-11.1); MONO % 3.7 % (3.8-10.2); NEUT % 94.7 % (42.8-82.8); PLATELET COUNT 224 10^3/uL (134-434); RBC 3.29 M/mm3 (3.60-5.2); RDW 18.9 % (11.6-15.6); WHITE BLOOD COUNT 27.3 K/mm3 (4.0-10.0)
[2023-02-04 07:47] LABS: CALCIUM 9.6 mg/dL (8.5-10.1)
[2023-02-04 07:48] LABS: ALBUMIN 1.5 g/dl (3.4-5.0); BLOOD UREA NITROGEN 71.9 mg/dL (7-18); CREATININE 1.2 mg/dL (0.55-1.3); MAGNESIUM 2.2 mg/dL (1.8-2.4)
[2023-02-04 07:50] LABS: BILIRUBIN,TOTAL 0.4 mg/dL (0.2-1); TOT PROT 5.3 g/dl (6.4-8.2)
[2023-02-04 07:51] LABS: PHOSPHOROUS 3.2 mg/dL (2.5-4.9)
[2023-02-04] MEDS: AMINO ACIDS/PROTEIN HYDROLYS 30 ML LIQUID.PKT PO SCH ×2 (08:34→17:05)
[2023-02-04 09:00] LABS: ANISOCYTOSIS 1+; MACROCYTOSIS 1+
[2023-02-04] MEDS ORDERED: FUROSEMIDE 40 MG/4 ML INJECTABLE VIAL IVPUSH ONE (09:34)
[2023-02-04] MEDS: MEROPENEM 1 GM in DEXTROSE 5%-WATER 100 ML IVPB SCH ×2 (10:10→23:51)
[2023-02-04] MEDS: HEPARIN NA (PORCINE) 5,000 UNITS/ML 1ML VIAL SQ SCH ×2 (10:11→22:29)
[2023-02-04] MEDS: LEVOTHYROXINE SODIUM 100 MCG 5 ML VIAL IVPUSH SCH (10:11)
[2023-02-04] MEDS: PANTOPRAZOLE SODIUM 40 MG VIAL IVPUSH SCH (10:11)
[2023-02-04] MEDS: COLLAGENASE CLOSTRIDIUM HIST. 30 GRAMS TUBE TP SCH (10:17)
[2023-02-04] MEDS: CHLORHEXIDINE GLUCONATE 4% CLEANSER FOR DECOLONIZATION TP SCH (22:29)
[2023-02-05] MEDS: NOREPINEPHRINE 0.9 % NACL 8 MG/250 ML BAG IVPB SCH ×2 (06:30→23:00)
[2023-02-05 07:09] LABS: HEMATOCRIT 24.4 % (32.4-45.2); HEMOGLOBIN 7.6 GM/dL (10.7-15.3); LYMPH % 1.5 % (8-40); MCH 24.4 pg (25.7-33.7); MCHC 31.1 g/dl (32.0-36.0); MEAN CELL VOLUME 78.6 fl (80-96); MEAN PLT VOLUME 9.3 fl (7.5-11.1); MONO % 3.8 % (3.8-10.2); NEUT % 94.7 % (42.8-82.8); PLATELET COUNT 200 10^3/uL (134-434); RDW 19.1 % (11.6-15.6); WHITE BLOOD COUNT 24.9 K/mm3 (4.0-10.0)
[2023-02-05 07:41] LABS: ALBUMIN 1.5 g/dl (3.4-5.0); BLOOD UREA NITROGEN 68.3 mg/dL (7-18); CALCIUM 9.3 mg/dL (8.5-10.1)
[2023-02-05 07:42] LABS: MAGNESIUM 2.1 mg/dL (1.8-2.4)
[2023-02-05 07:44] LABS: CREATININE 1.2 mg/dL (0.55-1.3)
[2023-02-05 07:46] LABS: BILIRUBIN,TOTAL 0.4 mg/dL (0.2-1); TOT PROT 5.2 g/dl (6.4-8.2)
[2023-02-05] MEDS: AMINO ACIDS/PROTEIN HYDROLYS 30 ML LIQUID.PKT PO SCH ×2 (08:41→17:47)
[2023-02-05] MEDS: HYDROCORTISONE SOD SUCCINATE 100 MG/2 ML VIAL IVPUSH SCH ×2 (09:40→22:53)
[2023-02-05] MEDS: HEPARIN NA (PORCINE) 5,000 UNITS/ML 1ML VIAL SQ SCH ×2 (09:40→22:53)
[2023-02-05] MEDS: PANTOPRAZOLE SODIUM 40 MG VIAL IVPUSH SCH (09:40)
[2023-02-05] MEDS: LEVOTHYROXINE SODIUM 100 MCG 5 ML VIAL IVPUSH SCH (09:40)
[2023-02-05] MEDS: COLLAGENASE CLOSTRIDIUM HIST. 30 GRAMS TUBE TP SCH (10:00)
[2023-02-05] MEDS: FUROSEMIDE 40 MG/4 ML INJECTABLE VIAL IVPUSH SCH (10:00)
[2023-02-05] MEDS: MEROPENEM 1 GM in DEXTROSE 5%-WATER 100 ML IVPB SCH ×2 (11:00→23:27)
[2023-02-05 11:53] LABS: ANISOCYTOSIS 0; HELMET CELLS 0; HOWELL-JOLLY BODIES 0; MACROCYTOSIS 0; OVALOCYTE 0; ROULEAU 0; SICKELED CELLS 0; TARGET CELLS 0; TEAR DROP CELLS 0; TOXIC GRANULATION 0
[2023-02-05] MEDS ORDERED: VANCOMYCIN/WATER FOR INJ (PEG) 1,000 MG/200 ML BAG IVPB ONE (15:00)
[2023-02-05] MEDS: CHLORHEXIDINE GLUCONATE 4% CLEANSER FOR DECOLONIZATION TP SCH (22:54)
[2023-02-05] MEDS: VASOPRESSIN 40 UNITS/100 ML BAG IV SCH (23:00)
[2023-02-06 07:46] LABS: HEMATOCRIT 24.9 % (32.4-45.2); HEMOGLOBIN 7.6 GM/dL (10.7-15.3); MCHC 30.6 g/dl (32.0-36.0); MEAN CELL VOLUME 78.5 fl (80-96); MEAN PLT VOLUME 9.6 fl (7.5-11.1); PLATELET COUNT 199 10^3/uL (134-434); RBC 3.17 M/mm3 (3.60-5.2); RDW 18.5 % (11.6-15.6); WHITE BLOOD COUNT 21.6 K/mm3 (4.0-10.0)
[2023-02-06 08:07] LABS: CALCIUM 9.8 mg/dL (8.5-10.1); MAGNESIUM 2.2 mg/dL (1.8-2.4)
[2023-02-06 08:11] LABS: BLOOD UREA NITROGEN 70.5 mg/dL (7-18)
[2023-02-06 08:13] LABS: CREATININE 1.1 mg/dL (0.55-1.3)
[2023-02-06] MEDS: AMINO ACIDS/PROTEIN HYDROLYS 30 ML LIQUID.PKT PO SCH ×3 (08:18→18:11)
[2023-02-06] MEDS: FUROSEMIDE 40 MG/4 ML INJECTABLE VIAL IVPUSH SCH ×2 (09:41→13:41)
[2023-02-06] MEDS: HYDROCORTISONE SOD SUCCINATE 100 MG/2 ML VIAL IVPUSH SCH ×2 (09:41→22:09)
[2023-02-06] MEDS: HEPARIN NA (PORCINE) 5,000 UNITS/ML 1ML VIAL SQ SCH (09:41)
[2023-02-06] MEDS: PANTOPRAZOLE SODIUM 40 MG VIAL IVPUSH SCH (09:41)
[2023-02-06] MEDS: LEVOTHYROXINE SODIUM 100 MCG 5 ML VIAL IVPUSH SCH (09:41)
[2023-02-06] MEDS: COLLAGENASE CLOSTRIDIUM HIST. 30 GRAMS TUBE TP SCH (09:42)
[2023-02-06] MEDS: MEROPENEM 1 GM in DEXTROSE 5%-WATER 100 ML IVPB SCH ×2 (11:46→23:32)
[2023-02-06] MEDS: MIDODRINE HCL 5 MG TABLET PO SCH ×3 (13:41→18:10)
[2023-02-06] MEDS: morphine SULFATE 4 MG/ML VIAL IVPUSH PRN (16:06)
[2023-02-06] MEDS ORDERED: INSULIN SLIDING SCALE (NOVOLOG) 1 VIAL SQ SCH (16:30)
[2023-02-06] MEDS: INSULIN SLIDING SCALE (NOVOLOG) 1 VIAL SQ SCH (17:00)
[2023-02-06 20:49] LABS: ARTERIAL BLD GAS O2 SATURATION 99.3 % (95-98); ARTERIAL BLOOD GAS BASE EXCESS -1.9 mmol/L (-2-2); ARTERIAL BLOOD GAS PO2 182.4 mmHg (80-100); ARTERIAL BLOOD GAS pH 7.461 (7.350-7.450)
[2023-02-06 20:53] LABS: ALLENS TEST POSITIVE
[2023-02-06] MEDS: CHLORHEXIDINE GLUCONATE 4% CLEANSER FOR DECOLONIZATION TP SCH (22:09)
[2023-02-06] MEDS: ENOXAPARIN NA (PORCINE) 40 MG/0.4 ML DISP.SYRIN SQ SCH (22:09)
[2023-02-07] MEDS: morphine SULFATE 4 MG/ML VIAL IVPUSH PRN (05:38)
[2023-02-07] MEDS: FUROSEMIDE 40 MG/4 ML INJECTABLE VIAL IVPUSH SCH ×2 (05:58→16:21)
[2023-02-07 07:40] LABS: BASO % 0.1 % (0-2.0); EOS % 0.1 % (0-4.5); HEMATOCRIT 23.5 % (32.4-45.2); HEMOGLOBIN 7.3 GM/dL (10.7-15.3); LYMPH % 3.3 % (8-40); MCH 25.5 pg (25.7-33.7); MEAN CELL VOLUME 82.3 fl (80-96); MEAN PLT VOLUME 10.2 fl (7.5-11.1); MONO % 7.4 % (3.8-10.2); NEUT % 89.1 % (42.8-82.8); PLATELET COUNT 168 10^3/uL (134-434); RBC 2.86 M/mm3 (3.60-5.2); RDW 18.7 % (11.6-15.6); WHITE BLOOD COUNT 16.3 K/mm3 (4.0-10.0)
[2023-02-07] MEDS: INSULIN SLIDING SCALE (NOVOLOG) 1 VIAL SQ SCH (07:48)
[2023-02-07] MEDS: ENOXAPARIN NA (PORCINE) 40 MG/0.4 ML DISP.SYRIN SQ SCH ×2 (10:47→21:19)
[2023-02-07] MEDS: PANTOPRAZOLE SODIUM 40 MG VIAL IVPUSH SCH (10:47)
[2023-02-07] MEDS: HYDROCORTISONE SOD SUCCINATE 100 MG/2 ML VIAL IVPUSH SCH ×2 (10:48→21:19)
[2023-02-07] MEDS: AMINO ACIDS/PROTEIN HYDROLYS 30 ML LIQUID.PKT PO SCH ×2 (10:48→19:13)
[2023-02-07] MEDS: COLLAGENASE CLOSTRIDIUM HIST. 30 GRAMS TUBE TP SCH (10:49)
[2023-02-07] MEDS: MIDODRINE HCL 5 MG TABLET PO SCH ×3 (10:49→21:39)
[2023-02-07] MEDS: MEROPENEM 1 GM in DEXTROSE 5%-WATER 100 ML IVPB SCH ×2 (10:51→22:32)
[2023-02-07] MEDS: LEVOTHYROXINE SODIUM 100 MCG 5 ML VIAL IVPUSH SCH (10:51)
[2023-02-07 13:00] LABS: ALBUMIN 1.5 g/dl (3.4-5.0); BLOOD UREA NITROGEN 62.7 mg/dL (7-18); CALCIUM 9.8 mg/dL (8.5-10.1); MAGNESIUM 2.3 mg/dL (1.8-2.4)
[2023-02-07 13:03] LABS: CREATININE 0.9 mg/dL (0.55-1.3)
[2023-02-07 13:05] LABS: BILIRUBIN,TOTAL 0.4 mg/dL (0.2-1); TOT PROT 5.2 g/dl (6.4-8.2)
[2023-02-07] MEDS: CHLORHEXIDINE GLUCONATE 4% CLEANSER FOR DECOLONIZATION TP SCH (21:19)
[2023-02-08] MEDS: FUROSEMIDE 40 MG/4 ML INJECTABLE VIAL IVPUSH SCH (05:59)
[2023-02-08] MEDS: INSULIN SLIDING SCALE (NOVOLOG) 1 VIAL SQ SCH ×2 (06:02→18:17)
[2023-02-08 08:15] LABS: CHLORIDE 124 mmol/L (98-107); SODIUM 153 mmol/L (136-145)
[2023-02-08 08:17] LABS: CALCIUM 9.2 mg/dL (8.5-10.1)
[2023-02-08 08:18] LABS: ALBUMIN 1.4 g/dl (3.4-5.0); BLOOD UREA NITROGEN 58.2 mg/dL (7-18); CO2 25 mmol/L (21-32); GLUCOSE,RANDOM 198 mg/dL (74-106); MAGNESIUM 2.1 mg/dL (1.8-2.4)
[2023-02-08 08:21] LABS: CREATININE 0.8 mg/dL (0.55-1.3); PHOSPHOROUS 2.8 mg/dL (2.5-4.9); SGOT/AST 22 U/L (15-37); SGPT/ALT 19 U/L (13-61)
[2023-02-08 08:22] LABS: BILIRUBIN,TOTAL 0.4 mg/dL (0.2-1)
[2023-02-08 08:24] LABS: ALK PHOS 109 U/L (45-117)
[2023-02-08 08:30] LABS: ANION GAP 5 MMOL/L (8-16)
[2023-02-08 08:43] LABS: BASO % 0.4 % (0-2.0); EOS % 0.5 % (0-4.5); HEMATOCRIT 24.9 % (32.4-45.2); HEMOGLOBIN 7.8 GM/dL (10.7-15.3); LYMPH % 5.4 % (8-40); MCH 25.2 pg (25.7-33.7); MCHC 31.2 g/dl (32.0-36.0); MEAN CELL VOLUME 80.8 fl (80-96); MEAN PLT VOLUME 10.1 fl (7.5-11.1); MONO % 9.9 % (3.8-10.2); NEUT % 83.8 % (42.8-82.8); PLATELET COUNT 187 10^3/uL (134-434); RBC 3.08 M/mm3 (3.60-5.2); RDW 18.7 % (11.6-15.6); WHITE BLOOD COUNT 15.4 K/mm3 (4.0-10.0)
[2023-02-08] MEDS: LEVOTHYROXINE SODIUM 100 MCG 5 ML VIAL IVPUSH SCH (09:40)
[2023-02-08] MEDS: HYDROCORTISONE SOD SUCCINATE 100 MG/2 ML VIAL IVPUSH SCH (09:40)
[2023-02-08] MEDS: PANTOPRAZOLE SODIUM 40 MG VIAL IVPUSH SCH (09:40)
[2023-02-08] MEDS: ENOXAPARIN NA (PORCINE) 40 MG/0.4 ML DISP.SYRIN SQ SCH ×2 (09:41→21:04)
[2023-02-08] MEDS: AMINO ACIDS/PROTEIN HYDROLYS 30 ML LIQUID.PKT PO SCH ×2 (09:41→17:58)
[2023-02-08] MEDS: MIDODRINE HCL 5 MG TABLET PO SCH ×3 (09:41→18:17)
[2023-02-08] MEDS: MEROPENEM 1 GM in DEXTROSE 5%-WATER 100 ML IVPB SCH (11:08)
[2023-02-08] MEDS: KCL 10 MEQ IVPB 10 MEQ/100 ML INFUS.BAG IVPB SCH ×3 (11:09→13:00)
[2023-02-08] MEDS ORDERED: POTASSIUM CHLORIDE ORAL LIQUID 20 MEQ/15 ML NGT ONE (12:15)
[2023-02-08] MEDS: COLLAGENASE CLOSTRIDIUM HIST. 30 GRAMS TUBE TP SCH (12:24)
[2023-02-08] MEDS ORDERED: CEFAZOLIN 1 GM in DEXTROSE 5%-WATER - 50 ML IVPB SCH (13:00)
[2023-02-08] MEDS: ALBUMIN HUMAN 25% 100 ML VIAL IV SCH ×2 (14:34→16:54)
[2023-02-08] MEDS: CEFAZOLIN 1 GM in DEXTROSE 5%-WATER - 50 ML IVPB SCH ×2 (16:54→17:58)
[2023-02-08 17:53] LABS: CALCIUM 9.3 mg/dL (8.5-10.1); MAGNESIUM 2.2 mg/dL (1.8-2.4)
[2023-02-08 17:54] LABS: BLOOD UREA NITROGEN 54.4 mg/dL (7-18)
[2023-02-08 17:57] LABS: CREATININE 0.9 mg/dL (0.55-1.3)
[2023-02-08] MEDS: CHLORHEXIDINE GLUCONATE 4% CLEANSER FOR DECOLONIZATION TP SCH (21:04)
[2023-02-09] MEDS: CEFAZOLIN 1 GM in DEXTROSE 5%-WATER - 50 ML IVPB SCH ×3 (01:25→17:47)
[2023-02-09] MEDS: INSULIN SLIDING SCALE (NOVOLOG) 1 VIAL SQ SCH ×2 (06:46→19:16)
[2023-02-09 07:19] LABS: BASO % 0.5 % (0-2.0); EOS % 0.5 % (0-4.5); HEMATOCRIT 23.2 % (32.4-45.2); LYMPH % 5.3 % (8-40); MCH 24.5 pg (25.7-33.7); MCHC 30.2 g/dl (32.0-36.0); MEAN CELL VOLUME 81.1 fl (80-96); MEAN PLT VOLUME 10.2 fl (7.5-11.1); NEUT % 84.7 % (42.8-82.8); PLATELET COUNT 147 10^3/uL (134-434); RBC 2.86 M/mm3 (3.60-5.2); RDW 19.3 % (11.6-15.6)
[2023-02-09 08:31] LABS: BLOOD UREA NITROGEN 54.3 mg/dL (7-18); CALCIUM 9.5 mg/dL (8.5-10.1)
[2023-02-09 08:35] LABS: PHOSPHOROUS 2.5 mg/dL (2.5-4.9)
[2023-02-09 08:36] LABS: CREATININE 0.9 mg/dL (0.55-1.3)
[2023-02-09 08:37] LABS: TOT PROT 5.2 g/dl (6.4-8.2)
[2023-02-09 08:38] LABS: BILIRUBIN,TOTAL 0.4 mg/dL (0.2-1)
[2023-02-09] MEDS: LEVOTHYROXINE SODIUM 100 MCG 5 ML VIAL IVPUSH SCH (10:29)
[2023-02-09] MEDS: PANTOPRAZOLE SODIUM 40 MG VIAL IVPUSH SCH (10:29)
[2023-02-09] MEDS: ENOXAPARIN NA (PORCINE) 40 MG/0.4 ML DISP.SYRIN SQ SCH ×2 (10:30→21:29)
[2023-02-09] MEDS: AMINO ACIDS/PROTEIN HYDROLYS 30 ML LIQUID.PKT PO SCH ×2 (10:30→17:47)
[2023-02-09] MEDS: MIDODRINE HCL 5 MG TABLET PO SCH ×3 (10:30→19:17)
[2023-02-09] MEDS: COLLAGENASE CLOSTRIDIUM HIST. 30 GRAMS TUBE TP SCH (10:30)
[2023-02-09] MEDS: FUROSEMIDE 40 MG/4 ML INJECTABLE VIAL IVPUSH SCH (13:41)
[2023-02-09] MEDS: CHLORHEXIDINE GLUCONATE 4% CLEANSER FOR DECOLONIZATION TP SCH (21:29)
[2023-02-10] MEDS: CEFAZOLIN 1 GM in DEXTROSE 5%-WATER - 50 ML IVPB SCH ×3 (01:47→17:22)
[2023-02-10] MEDS: FUROSEMIDE 40 MG/4 ML INJECTABLE VIAL IVPUSH SCH ×2 (06:24→14:07)
[2023-02-10] MEDS: INSULIN SLIDING SCALE (NOVOLOG) 1 VIAL SQ SCH ×2 (06:29→19:39)
[2023-02-10 08:45] LABS: BASO % 0.3 % (0-2.0); EOS % 0.6 % (0-4.5); HEMATOCRIT 24.4 % (32.4-45.2); HEMOGLOBIN 7.5 GM/dL (10.7-15.3); LYMPH % 6.1 % (8-40); MCH 25.5 pg (25.7-33.7); MCHC 30.8 g/dl (32.0-36.0); MEAN CELL VOLUME 82.7 fl (80-96); MEAN PLT VOLUME 10.8 fl (7.5-11.1); MONO % 10.9 % (3.8-10.2); NEUT % 82.1 % (42.8-82.8); PLATELET COUNT 141 10^3/uL (134-434); RBC 2.95 M/mm3 (3.60-5.2); RDW 20.3 % (11.6-15.6); WHITE BLOOD COUNT 13.8 K/mm3 (4.0-10.0)
[2023-02-10 09:01] LABS: BLOOD UREA NITROGEN 53.4 mg/dL (7-18); MAGNESIUM 2.2 mg/dL (1.8-2.4)
[2023-02-10 09:04] LABS: PHOSPHOROUS 2.2 mg/dL (2.5-4.9)
[2023-02-10] MEDS: MIDODRINE HCL 5 MG TABLET PO SCH ×3 (09:19→19:31)
[2023-02-10] MEDS: ZINC SULFATE 220 MG CAPSULE (FP) PO SCH (09:19)
[2023-02-10] MEDS: ASCORBIC ACID 500 MG TABLET (FP) PO SCH (09:19)
[2023-02-10] MEDS: PANTOPRAZOLE SODIUM 40 MG VIAL IVPUSH SCH (09:19)
[2023-02-10] MEDS: ENOXAPARIN NA (PORCINE) 40 MG/0.4 ML DISP.SYRIN SQ SCH ×2 (09:20→22:16)
[2023-02-10] MEDS: AMINO ACIDS/PROTEIN HYDROLYS 30 ML LIQUID.PKT PO SCH ×2 (09:20→17:22)
[2023-02-10] MEDS: LEVOTHYROXINE SODIUM 100 MCG 5 ML VIAL IVPUSH SCH (14:07)
[2023-02-10] MEDS ORDERED: POTASSIUM CHLORIDE ORAL LIQUID 20 MEQ/15 ML PO ONE (16:50)
[2023-02-10] MEDS: NAPH,MB-DB/K PH,MBDB POWDER PACKET PO SCH ×2 (17:22→22:16)
[2023-02-10] MEDS: COLLAGENASE CLOSTRIDIUM HIST. 30 GRAMS TUBE TP SCH (17:23)
[2023-02-10] MEDS: ALBUMIN HUMAN 25% 12.5 GM/50 ML VIAL IV ONE ×2 (18:11→18:12)
[2023-02-10] MEDS ORDERED: INSULIN (NOVOLOG) ASPART 100 UNITS/ML 10ML VIAL ONE ×2 (19:36→19:50)
[2023-02-11] MEDS: CEFAZOLIN 1 GM in DEXTROSE 5%-WATER - 50 ML IVPB SCH ×3 (02:09→20:11)
[2023-02-11] MEDS: NAPH,MB-DB/K PH,MBDB POWDER PACKET PO SCH (05:30)
[2023-02-11] MEDS: INSULIN SLIDING SCALE (NOVOLOG) 1 VIAL SQ SCH ×2 (08:27→16:41)
[2023-02-11 09:38] LABS: BASO % 1.3 % (0-2.0); EOS % 0.5 % (0-4.5); HEMATOCRIT 21.1 % (32.4-45.2); LYMPH % 7.4 % (8-40); MCH 25.5 pg (25.7-33.7); MCHC 30.6 g/dl (32.0-36.0); MEAN CELL VOLUME 83.3 fl (80-96); MEAN PLT VOLUME 10.7 fl (7.5-11.1); MONO % 8.2 % (3.8-10.2); NEUT % 82.6 % (42.8-82.8); PLATELET COUNT 111 10^3/uL (134-434); RBC 2.54 M/mm3 (3.60-5.2); RDW 19.5 % (11.6-15.6); WHITE BLOOD COUNT 13.5 K/mm3 (4.0-10.0)
[2023-02-11 09:53] LABS: ALBUMIN 1.7 g/dl (3.4-5.0); CALCIUM 8.6 mg/dL (8.5-10.1); MAGNESIUM 2.2 mg/dL (1.8-2.4)
[2023-02-11 09:54] LABS: BLOOD UREA NITROGEN 55.3 mg/dL (7-18)
[2023-02-11 09:57] LABS: PHOSPHOROUS 2.4 mg/dL (2.5-4.9)
[2023-02-11 09:58] LABS: BILIRUBIN,TOTAL 0.3 mg/dL (0.2-1); HEMOGLOBIN 6.5 GM/dL (10.7-15.3); TOT PROT 4.7 g/dl (6.4-8.2)
[2023-02-11] MEDS: MIDODRINE HCL 5 MG TABLET PO SCH (13:09)
[2023-02-11] MEDS: ASCORBIC ACID 500 MG TABLET (FP) PO SCH (13:09)
[2023-02-11] MEDS: PANTOPRAZOLE SODIUM 40 MG VIAL IVPUSH SCH (13:09)
[2023-02-11] MEDS: ENOXAPARIN NA (PORCINE) 40 MG/0.4 ML DISP.SYRIN SQ SCH ×2 (13:09→22:38)
[2023-02-11] MEDS: ZINC SULFATE 220 MG CAPSULE (FP) PO SCH (13:09)
[2023-02-11] MEDS: AMINO ACIDS/PROTEIN HYDROLYS 30 ML LIQUID.PKT PO SCH (13:10)
[2023-02-11] MEDS: COLLAGENASE CLOSTRIDIUM HIST. 30 GRAMS TUBE TP SCH (13:10)
[2023-02-11] MEDS: LEVOTHYROXINE SODIUM 100 MCG 5 ML VIAL IVPUSH SCH (14:32)
[2023-02-11] MEDS: MIDODRINE HCL 5 MG TABLET GT SCH ×2 (14:58→19:53)
[2023-02-11] MEDS: ACETAMINOPHEN 1000 MG/100 ML BAG IVPB PRN (15:13)
[2023-02-11] MEDS: AMINO ACIDS/PROTEIN HYDROLYS 30 ML LIQUID.PKT NGT SCH (17:03)
[2023-02-12] MEDS: CEFAZOLIN 1 GM in DEXTROSE 5%-WATER - 50 ML IVPB SCH ×3 (02:04→18:03)
[2023-02-12] MEDS: INSULIN SLIDING SCALE (NOVOLOG) 1 VIAL SQ SCH ×2 (07:06→17:19)
[2023-02-12] MEDS: ZINC SULFATE 220 MG CAPSULE (FP) NGT SCH (09:45)
[2023-02-12] MEDS: AMINO ACIDS/PROTEIN HYDROLYS 30 ML LIQUID.PKT NGT SCH ×2 (09:45→18:03)
[2023-02-12] MEDS: PANTOPRAZOLE SODIUM 40 MG VIAL IVPUSH SCH (09:45)
[2023-02-12] MEDS: ENOXAPARIN NA (PORCINE) 40 MG/0.4 ML DISP.SYRIN SQ SCH ×2 (09:45→22:02)
[2023-02-12] MEDS: MIDODRINE HCL 5 MG TABLET GT SCH ×3 (09:45→18:03)
[2023-02-12] MEDS: ASCORBIC ACID 500 MG/5 ML UNIT DOSE CUP NGT SCH (09:46)
[2023-02-12] MEDS: LEVOTHYROXINE SODIUM 100 MCG 5 ML VIAL IVPUSH SCH (09:46)
[2023-02-12 11:29] LABS: EOS % 0.8 % (0-4.5); LYMPH % 7.9 % (8-40); MCH 25.5 pg (25.7-33.7); MCHC 30.9 g/dl (32.0-36.0); MEAN CELL VOLUME 82.8 fl (80-96); MEAN PLT VOLUME 10.7 fl (7.5-11.1); MONO % 8.1 % (3.8-10.2); NEUT % 82.2 % (42.8-82.8); PLATELET COUNT 114 10^3/uL (134-434); RBC 3.14 M/mm3 (3.60-5.2); RDW 19.1 % (11.6-15.6); WHITE BLOOD COUNT 12.8 K/mm3 (4.0-10.0)
[2023-02-12] MEDS: COLLAGENASE CLOSTRIDIUM HIST. 30 GRAMS TUBE TP SCH (11:32)
[2023-02-12 11:47] LABS: CALCIUM 9.4 mg/dL (8.5-10.1)
[2023-02-12 11:49] LABS: ALBUMIN 1.6 g/dl (3.4-5.0); BLOOD UREA NITROGEN 58.4 mg/dL (7-18); MAGNESIUM 2.3 mg/dL (1.8-2.4)
[2023-02-12 11:51] LABS: CREATININE 1.2 mg/dL (0.55-1.3); PHOSPHOROUS 2.6 mg/dL (2.5-4.9)
[2023-02-12 11:52] LABS: BILIRUBIN,TOTAL 0.3 mg/dL (0.2-1)
[2023-02-12] MEDS: ACETAMINOPHEN 1000 MG/100 ML BAG IVPB PRN (13:27)
[2023-02-13] MEDS: CEFAZOLIN 1 GM in DEXTROSE 5%-WATER - 50 ML IVPB SCH ×3 (01:48→17:18)
[2023-02-13] MEDS: INSULIN SLIDING SCALE (NOVOLOG) 1 VIAL SQ SCH ×2 (07:28→17:39)
[2023-02-13] MEDS: PANTOPRAZOLE SODIUM 40 MG VIAL IVPUSH SCH (09:34)
[2023-02-13] MEDS ORDERED: COLLAGENASE CLOSTRIDIUM HIST. 30 GRAMS TUBE TP SCH (10:00)
[2023-02-13] MEDS: ENOXAPARIN NA (PORCINE) 40 MG/0.4 ML DISP.SYRIN SQ SCH (11:03)
[2023-02-13] MEDS: MIDODRINE HCL 5 MG TABLET GT SCH ×3 (11:03→18:12)
[2023-02-13] MEDS: ZINC SULFATE 220 MG CAPSULE (FP) NGT SCH (11:03)
[2023-02-13] MEDS: AMINO ACIDS/PROTEIN HYDROLYS 30 ML LIQUID.PKT NGT SCH ×2 (11:03→17:17)
[2023-02-13] MEDS: ASCORBIC ACID 500 MG/5 ML UNIT DOSE CUP NGT SCH (11:04)
[2023-02-13] MEDS: COLLAGENASE CLOSTRIDIUM HIST. 30 GRAMS TUBE TP SCH ×2 (11:26)
[2023-02-13] MEDS: LEVOTHYROXINE SODIUM 100 MCG 5 ML VIAL IVPUSH SCH (11:26)
[2023-02-14] MEDS: ENOXAPARIN NA (PORCINE) 40 MG/0.4 ML DISP.SYRIN SQ SCH ×3 (00:18→23:37)
[2023-02-14] MEDS: CEFAZOLIN 1 GM in DEXTROSE 5%-WATER - 50 ML IVPB SCH ×3 (02:49→17:39)
[2023-02-14] MEDS ORDERED: ACETAMINOPHEN 1000 MG/100 ML BAG IVPB PRN (04:33)
[2023-02-14] MEDS: INSULIN SLIDING SCALE (NOVOLOG) 1 VIAL SQ SCH ×2 (07:42→18:44)
[2023-02-14] MEDS: PANTOPRAZOLE SODIUM 40 MG VIAL IVPUSH SCH (09:44)
[2023-02-14] MEDS: AMINO ACIDS/PROTEIN HYDROLYS 30 ML LIQUID.PKT NGT SCH ×2 (09:44→17:39)
[2023-02-14] MEDS: MIDODRINE HCL 5 MG TABLET GT SCH ×3 (09:45→17:39)
[2023-02-14] MEDS: ZINC SULFATE 220 MG CAPSULE (FP) NGT SCH (09:45)
[2023-02-14] MEDS: LEVOTHYROXINE SODIUM 100 MCG 5 ML VIAL IVPUSH SCH (09:45)
[2023-02-14] MEDS: COLLAGENASE CLOSTRIDIUM HIST. 30 GRAMS TUBE TP SCH ×2 (09:46→09:47)
[2023-02-14] MEDS: ASCORBIC ACID 500 MG/5 ML UNIT DOSE CUP NGT SCH (09:46)
[2023-02-14 10:59] LABS: BASO % 1.1 % (0-2.0); EOS % 1.3 % (0-4.5); HEMATOCRIT 24.7 % (32.4-45.2); HEMOGLOBIN 7.8 GM/dL (10.7-15.3); LYMPH % 11.4 % (8-40); MCH 26.8 pg (25.7-33.7); MCHC 31.7 g/dl (32.0-36.0); MEAN CELL VOLUME 84.5 fl (80-96); MONO % 8.2 % (3.8-10.2); PLATELET COUNT 105 10^3/uL (134-434); RBC 2.92 M/mm3 (3.60-5.2); RDW 19.7 % (11.6-15.6); WHITE BLOOD COUNT 9.7 K/mm3 (4.0-10.0)
[2023-02-14 11:13] LABS: CHLORIDE 123 mmol/L (98-107); SODIUM 155 mmol/L (136-145)
[2023-02-14 11:22] LABS: CALCIUM 9.3 mg/dL (8.5-10.1)
[2023-02-14 11:23] LABS: ALBUMIN 1.3 g/dl (3.4-5.0); ANION GAP 2 MMOL/L (8-16); BLOOD UREA NITROGEN 60.7 mg/dL (7-18); CO2 29 mmol/L (21-32); GLUCOSE,RANDOM 140 mg/dL (74-106); MAGNESIUM 2.3 mg/dL (1.8-2.4)
[2023-02-14 11:26] LABS: CREATININE 1.4 mg/dL (0.55-1.3); PHOSPHOROUS 2.9 mg/dL (2.5-4.9); SGOT/AST 16 U/L (15-37)
[2023-02-14 11:27] LABS: TOT PROT 4.9 g/dl (6.4-8.2)
[2023-02-14 11:28] LABS: ALK PHOS 125 U/L (45-117); BILIRUBIN,TOTAL 0.3 mg/dL (0.2-1)
[2023-02-14 11:29] LABS: SGPT/ALT < 6 U/L (13-61)
[2023-02-15] MEDS: CEFAZOLIN 1 GM in DEXTROSE 5%-WATER - 50 ML IVPB SCH ×3 (01:55→17:15)
[2023-02-15] MEDS ORDERED: INSULIN (NOVOLOG) ASPART 100 UNITS/ML 10ML VIAL ONE (06:29)
[2023-02-15] MEDS: INSULIN SLIDING SCALE (NOVOLOG) 1 VIAL SQ SCH ×2 (07:30→16:43)
[2023-02-15] MEDS: MIDODRINE HCL 5 MG TABLET GT SCH ×3 (09:49→17:16)
[2023-02-15] MEDS: PANTOPRAZOLE SODIUM 40 MG VIAL IVPUSH SCH (09:49)
[2023-02-15] MEDS: AMINO ACIDS/PROTEIN HYDROLYS 30 ML LIQUID.PKT NGT SCH ×2 (09:49→17:15)
[2023-02-15] MEDS: ENOXAPARIN NA (PORCINE) 40 MG/0.4 ML DISP.SYRIN SQ SCH (09:49)
[2023-02-15] MEDS: ZINC SULFATE 220 MG CAPSULE (FP) NGT SCH (09:49)
[2023-02-15] MEDS: COLLAGENASE CLOSTRIDIUM HIST. 30 GRAMS TUBE TP SCH ×2 (09:50→13:44)
[2023-02-15] MEDS: LEVOTHYROXINE SODIUM 100 MCG 5 ML VIAL IVPUSH SCH (09:51)
[2023-02-15] MEDS: ASCORBIC ACID 500 MG/5 ML UNIT DOSE CUP NGT SCH (09:51)
[2023-02-15] MEDS ORDERED: ACETAMINOPHEN 1000 MG/100 ML BAG IVPB PRN (18:20)
[2023-02-15] MEDS: MAG HYDROX/ALH/SMC/DPHA/LIDO 240 ML MOUTHWASH MM SCH (18:40)
[2023-02-16] MEDS: MAG HYDROX/ALH/SMC/DPHA/LIDO 240 ML MOUTHWASH MM SCH ×4 (00:50→17:26)
[2023-02-16] MEDS: DEXTROSE 5%-WATER - 1,000 ML IV SCH ×2 (01:50→16:32)
[2023-02-16] MEDS: CEFAZOLIN 1 GM in DEXTROSE 5%-WATER - 50 ML IVPB SCH ×3 (01:50→17:27)
[2023-02-16] MEDS: INSULIN SLIDING SCALE (NOVOLOG) 1 VIAL SQ SCH ×2 (07:01→16:43)
[2023-02-16] MEDS: AMINO ACIDS/PROTEIN HYDROLYS 30 ML LIQUID.PKT NGT SCH ×2 (08:29→17:27)
[2023-02-16 08:33] LABS: INR 0.99 (0.83-1.09); PROTHROMBIN TIME (PATIENT) 11.5 SEC (9.7-13.0)
[2023-02-16] MEDS: MIDODRINE HCL 5 MG TABLET GT SCH ×3 (10:09→17:26)
[2023-02-16] MEDS: ZINC SULFATE 220 MG CAPSULE (FP) NGT SCH (10:09)
[2023-02-16] MEDS: COLLAGENASE CLOSTRIDIUM HIST. 30 GRAMS TUBE TP SCH ×2 (10:10→11:26)
[2023-02-16] MEDS: PANTOPRAZOLE SODIUM 40 MG VIAL IVPUSH SCH (10:10)
[2023-02-16] MEDS: ASCORBIC ACID 500 MG/5 ML UNIT DOSE CUP NGT SCH (10:11)
[2023-02-16] MEDS: LEVOTHYROXINE SODIUM 100 MCG 5 ML VIAL IVPUSH SCH (10:11)
[2023-02-16] MEDS ORDERED: INSULIN (NOVOLOG) ASPART 100 UNITS/ML 10ML VIAL ONE (17:50)
[2023-02-16] MEDS: LYTES/YERBA SANTA 240 ML BOTTLE MM SCH (21:39)
[2023-02-17] MEDS: MAG HYDROX/ALH/SMC/DPHA/LIDO 240 ML MOUTHWASH MM SCH ×5 (01:08→23:58)
[2023-02-17] MEDS: CEFAZOLIN 1 GM in DEXTROSE 5%-WATER - 50 ML IVPB SCH ×3 (01:15→18:33)
[2023-02-17] MEDS ORDERED: INSULIN (NOVOLOG) ASPART 100 UNITS/ML 10ML VIAL ONE (07:44)
[2023-02-17] MEDS: INSULIN SLIDING SCALE (NOVOLOG) 1 VIAL SQ SCH ×3 (07:45→18:38)
[2023-02-17 09:28] LABS: CHLORIDE 116 mmol/L (98-107); SODIUM 147 mmol/L (136-145)
[2023-02-17 09:30] LABS: CALCIUM 8.9 mg/dL (8.5-10.1)
[2023-02-17 09:31] LABS: ALBUMIN 1.2 g/dl (3.4-5.0); ANION GAP 3 MMOL/L (8-16); BLOOD UREA NITROGEN 63.8 mg/dL (7-18); CO2 28 mmol/L (21-32); GLUCOSE,RANDOM 148 mg/dL (74-106)
[2023-02-17 09:34] LABS: CREATININE 1.7 mg/dL (0.55-1.3); SGOT/AST 23 U/L (15-37); SGPT/ALT < 6 U/L (13-61)
[2023-02-17 09:36] LABS: BILIRUBIN,TOTAL 0.3 mg/dL (0.2-1); TOT PROT 5.1 g/dl (6.4-8.2)
[2023-02-17 09:37] LABS: ALK PHOS 129 U/L (45-117)
[2023-02-17] MEDS: DEXTROSE 5%-WATER - 1,000 ML IV SCH ×2 (09:59→23:57)
[2023-02-17] MEDS: ZINC SULFATE 220 MG CAPSULE (FP) NGT SCH (10:26)
[2023-02-17] MEDS: PANTOPRAZOLE SODIUM 40 MG VIAL IVPUSH SCH (10:26)
[2023-02-17] MEDS: MIDODRINE HCL 5 MG TABLET GT SCH ×3 (10:26→17:37)
[2023-02-17] MEDS: COLLAGENASE CLOSTRIDIUM HIST. 30 GRAMS TUBE TP SCH ×2 (10:32→10:33)
[2023-02-17] MEDS: LEVOTHYROXINE SODIUM 100 MCG 5 ML VIAL IVPUSH SCH (10:34)
[2023-02-17] MEDS: AMINO ACIDS/PROTEIN HYDROLYS 30 ML LIQUID.PKT NGT SCH ×2 (10:34→17:37)
[2023-02-17] MEDS: ASCORBIC ACID 500 MG/5 ML UNIT DOSE CUP NGT SCH (10:36)
[2023-02-17] MEDS ORDERED: ACETAMINOPHEN 1000 MG/100 ML BAG IVPB PRN (10:53)
[2023-02-17] MEDS: LYTES/YERBA SANTA 240 ML BOTTLE MM SCH ×2 (11:10→21:24)
[2023-02-17] MEDS ORDERED: MINERAL OIL 30 ML UNIT-DOSE CUP PO ONE (11:53)
[2023-02-18] MEDS: CEFAZOLIN 1 GM in DEXTROSE 5%-WATER - 50 ML IVPB SCH ×3 (01:22→18:04)
[2023-02-18] MEDS: INSULIN SLIDING SCALE (NOVOLOG) 1 VIAL SQ SCH ×2 (06:21→17:05)
[2023-02-18] MEDS: MAG HYDROX/ALH/SMC/DPHA/LIDO 240 ML MOUTHWASH MM SCH ×2 (06:21→14:27)
[2023-02-18] MEDS: ENOXAPARIN NA (PORCINE) 40 MG/0.4 ML DISP.SYRIN SQ SCH (09:39)
[2023-02-18] MEDS: MIDODRINE HCL 5 MG TABLET GT SCH ×2 (09:39→15:47)
[2023-02-18] MEDS: AMINO ACIDS/PROTEIN HYDROLYS 30 ML LIQUID.PKT NGT SCH ×2 (09:39→16:44)
[2023-02-18] MEDS: ZINC SULFATE 220 MG CAPSULE (FP) NGT SCH (09:39)
[2023-02-18] MEDS: PANTOPRAZOLE SODIUM 40 MG VIAL IVPUSH SCH (09:40)
[2023-02-18] MEDS: LYTES/YERBA SANTA 240 ML BOTTLE MM SCH ×2 (09:43→23:42)
[2023-02-18] MEDS: LEVOTHYROXINE SODIUM 100 MCG 5 ML VIAL IVPUSH SCH (09:43)
[2023-02-18] MEDS: ASCORBIC ACID 500 MG/5 ML UNIT DOSE CUP NGT SCH (09:43)
[2023-02-18] MEDS: COLLAGENASE CLOSTRIDIUM HIST. 30 GRAMS TUBE TP SCH ×2 (09:44)
[2023-02-18 12:13] LABS: CHLORIDE 118 mmol/L (98-107); SODIUM 148 mmol/L (136-145)
[2023-02-18 12:16] LABS: ANION GAP 6 MMOL/L (8-16); BLOOD UREA NITROGEN 61.5 mg/dL (7-18); CALCIUM 8.9 mg/dL (8.5-10.1); CO2 24 mmol/L (21-32); GLUCOSE,RANDOM 186 mg/dL (74-106)
[2023-02-18 12:17] LABS: ALBUMIN 1.1 g/dl (3.4-5.0)
[2023-02-18 12:19] LABS: SGOT/AST 17 U/L (15-37)
[2023-02-18 12:20] LABS: BILIRUBIN,TOTAL 0.2 mg/dL (0.2-1); CREATININE 1.7 mg/dL (0.55-1.3); TOT PROT 5.1 g/dl (6.4-8.2)
[2023-02-18 12:22] LABS: ALK PHOS 141 U/L (45-117)
[2023-02-18 12:48] LABS: SGPT/ALT < 6 U/L (13-61)
[2023-02-18] MEDS: DEXTROSE 5%-WATER - 1,000 ML IV SCH (15:48)
[2023-02-19] MEDS: MAG HYDROX/ALH/SMC/DPHA/LIDO 240 ML MOUTHWASH MM SCH ×8 (01:05→23:50)
[2023-02-19] MEDS: DEXTROSE 5%-WATER - 1,000 ML IV SCH (02:12)
[2023-02-19] MEDS: CEFAZOLIN 1 GM in DEXTROSE 5%-WATER - 50 ML IVPB SCH ×3 (02:48→17:05)
[2023-02-19] MEDS: INSULIN SLIDING SCALE (NOVOLOG) 1 VIAL SQ SCH ×2 (07:14→17:05)
[2023-02-19] MEDS: MIDODRINE HCL 5 MG TABLET GT SCH ×4 (07:46→17:09)
[2023-02-19] MEDS: ZINC SULFATE 220 MG CAPSULE (FP) NGT SCH (09:13)
[2023-02-19] MEDS: AMINO ACIDS/PROTEIN HYDROLYS 30 ML LIQUID.PKT NGT SCH ×2 (09:13→17:05)
[2023-02-19] MEDS: PANTOPRAZOLE SODIUM 40 MG VIAL IVPUSH SCH (09:14)
[2023-02-19] MEDS: COLLAGENASE CLOSTRIDIUM HIST. 30 GRAMS TUBE TP SCH ×2 (09:15)
[2023-02-19] MEDS: LYTES/YERBA SANTA 240 ML BOTTLE MM SCH ×2 (09:16→21:35)
[2023-02-19] MEDS: LEVOTHYROXINE SODIUM 100 MCG 5 ML VIAL IVPUSH SCH (09:28)
[2023-02-19] MEDS: ASCORBIC ACID 500 MG/5 ML UNIT DOSE CUP NGT SCH (09:28)
[2023-02-19 12:21] LABS: CHLORIDE 110 mmol/L (98-107); SODIUM 141 mmol/L (136-145)
[2023-02-19 12:25] LABS: CALCIUM 8.8 mg/dL (8.5-10.1); GLUCOSE,RANDOM 130 mg/dL (74-106)
[2023-02-19 12:26] LABS: ANION GAP 6 MMOL/L (8-16); BLOOD UREA NITROGEN 59.8 mg/dL (7-18); CO2 25 mmol/L (21-32)
[2023-02-19 12:28] LABS: CREATININE 1.6 mg/dL (0.55-1.3); SGOT/AST 16 U/L (15-37); SGPT/ALT < 6 U/L (13-61)
[2023-02-19 12:29] LABS: BILIRUBIN,TOTAL 0.2 mg/dL (0.2-1); TOT PROT 5.1 g/dl (6.4-8.2)
[2023-02-19 12:30] LABS: ALK PHOS 137 U/L (45-117)
[2023-02-20] MEDS: CEFAZOLIN 1 GM in DEXTROSE 5%-WATER - 50 ML IVPB SCH (03:22)
[2023-02-20] MEDS ORDERED: ACETAMINOPHEN 1000 MG/100 ML BAG IVPB ONE (05:00)
[2023-02-20] MEDS ORDERED: VANCOMYCIN/WATER 2 GRAMS 2,000 MG/400 ML PIGGYBACK IVPB ONE (05:00)
[2023-02-20] MEDS: PIPERACILLIN/TAZOB 3.375 GM 3.375 GM in DEXTROSE 5%-WATER - 50 ML IVPB SCH ×4 (06:44→21:18)
[2023-02-20] MEDS: DEXTROSE 5%-WATER - 1,000 ML IV SCH (06:44)
[2023-02-20] MEDS: MAG HYDROX/ALH/SMC/DPHA/LIDO 240 ML MOUTHWASH MM SCH ×3 (07:33→17:52)
[2023-02-20] MEDS: INSULIN SLIDING SCALE (NOVOLOG) 1 VIAL SQ SCH ×2 (08:29→17:26)
[2023-02-20 09:31] LABS: HEMATOCRIT 21.1 % (32.4-45.2); MCH 26.7 pg (25.7-33.7); MCHC 31.7 g/dl (32.0-36.0); MEAN CELL VOLUME 84.1 fl (80-96); MEAN PLT VOLUME 9.8 fl (7.5-11.1); PLATELET COUNT 197 10^3/uL (134-434); RBC 2.51 M/mm3 (3.60-5.2); RDW 20.5 % (11.6-15.6); WHITE BLOOD COUNT 7.4 K/mm3 (4.0-10.0)
[2023-02-20 09:40] LABS: HEMOGLOBIN 6.7 GM/dL (10.7-15.3)
[2023-02-20 09:49] LABS: CHLORIDE 108 mmol/L (98-107); SODIUM 139 mmol/L (136-145)
[2023-02-20 10:03] LABS: CALCIUM 9.1 mg/dL (8.5-10.1)
[2023-02-20 10:04] LABS: ANION GAP 7 MMOL/L (8-16); BLOOD UREA NITROGEN 59.4 mg/dL (7-18); CO2 24 mmol/L (21-32); GLUCOSE,RANDOM 100 mg/dL (74-106)
[2023-02-20 10:06] LABS: CREATININE 1.5 mg/dL (0.55-1.3)
[2023-02-20 10:08] LABS: SGOT/AST 20 U/L (15-37); TOT PROT 5.4 g/dl (6.4-8.2)
[2023-02-20 10:09] LABS: ALK PHOS 146 U/L (45-117); BILIRUBIN,TOTAL 0.2 mg/dL (0.2-1)
[2023-02-20] MEDS ORDERED: MIDAZOLAM HCL 2 MG/2 ML SINGLE DOSE VIAL ONE (10:14)
[2023-02-20] MEDS ORDERED: GLUCAGON 1 MG KIT ONE (10:14)
[2023-02-20] MEDS ORDERED: FENTANYL CITRATE/PF 50 MCG/ML VIAL ONE (10:14)
[2023-02-20 10:15] LABS: ANISOCYTOSIS 2+; MACROCYTOSIS 0
[2023-02-20] MEDS ORDERED: ACETAMINOPHEN 1000 MG/100 ML BAG IVPB PRN (10:15)
[2023-02-20 10:21] LABS: SGPT/ALT < 6 U/L (13-61)
[2023-02-20] MEDS: MIDODRINE HCL 5 MG TABLET GT SCH ×3 (10:32→17:28)
[2023-02-20] MEDS: ZINC SULFATE 220 MG CAPSULE (FP) NGT SCH (10:32)
[2023-02-20] MEDS: AMINO ACIDS/PROTEIN HYDROLYS 30 ML LIQUID.PKT NGT SCH ×2 (10:33→17:05)
[2023-02-20] MEDS: LYTES/YERBA SANTA 240 ML BOTTLE MM SCH ×2 (10:33→23:19)
[2023-02-20] MEDS: ASCORBIC ACID 500 MG/5 ML UNIT DOSE CUP NGT SCH (10:37)
[2023-02-20] MEDS: LEVOTHYROXINE SODIUM 100 MCG 5 ML VIAL IVPUSH SCH (10:37)
[2023-02-20] MEDS: COLLAGENASE CLOSTRIDIUM HIST. 30 GRAMS TUBE TP SCH ×2 (10:37→10:46)
[2023-02-20] MEDS: PANTOPRAZOLE SODIUM 40 MG VIAL IVPUSH SCH ×2 (15:41→23:17)
[2023-02-21] MEDS: MAG HYDROX/ALH/SMC/DPHA/LIDO 240 ML MOUTHWASH MM SCH ×4 (00:36→18:09)
[2023-02-21] MEDS: DEXTROSE 5%-WATER - 1,000 ML IV SCH ×3 (01:37→17:49)
[2023-02-21] MEDS: PIPERACILLIN/TAZOB 3.375 GM 3.375 GM in DEXTROSE 5%-WATER - 50 ML IVPB SCH ×4 (02:46→21:12)
[2023-02-21] MEDS ORDERED: VANCOMYCIN/WATER FOR INJ (PEG) 1,000 MG/200 ML BAG IVPB SCH ×2 (05:00)
[2023-02-21] MEDS: INSULIN SLIDING SCALE (NOVOLOG) 1 VIAL SQ SCH ×2 (06:56→18:03)
[2023-02-21 09:19] LABS: CHLORIDE 108 mmol/L (98-107); SODIUM 138 mmol/L (136-145)
[2023-02-21 09:27] LABS: ANION GAP 7 MMOL/L (8-16); BLOOD UREA NITROGEN 62.8 mg/dL (7-18); CO2 22 mmol/L (21-32); GLUCOSE,RANDOM 98 mg/dL (74-106); MAGNESIUM 1.9 mg/dL (1.8-2.4)
[2023-02-21 09:30] LABS: CREATININE 1.4 mg/dL (0.55-1.3); SGOT/AST 19 U/L (15-37); SGPT/ALT < 6 U/L (13-61)
[2023-02-21 09:31] LABS: BILIRUBIN,TOTAL 0.3 mg/dL (0.2-1)
[2023-02-21 09:32] LABS: TOT PROT 5.5 g/dl (6.4-8.2)
[2023-02-21 09:33] LABS: ALK PHOS 141 U/L (45-117)
[2023-02-21] MEDS: ENOXAPARIN NA (PORCINE) 40 MG/0.4 ML DISP.SYRIN SQ SCH (11:50)
[2023-02-21] MEDS: LYTES/YERBA SANTA 240 ML BOTTLE MM SCH ×2 (11:50→22:00)
[2023-02-21] MEDS: MIDODRINE HCL 5 MG TABLET GT SCH ×3 (11:50→19:16)
[2023-02-21] MEDS: PANTOPRAZOLE SODIUM 40 MG VIAL IVPUSH SCH ×2 (11:50→22:00)
[2023-02-21] MEDS: ZINC SULFATE 220 MG CAPSULE (FP) NGT SCH (11:50)
[2023-02-21] MEDS: ASCORBIC ACID 500 MG/5 ML UNIT DOSE CUP NGT SCH (11:51)
[2023-02-21] MEDS: LEVOTHYROXINE SODIUM 100 MCG 5 ML VIAL IVPUSH SCH (11:53)
[2023-02-21] MEDS: COLLAGENASE CLOSTRIDIUM HIST. 30 GRAMS TUBE TP SCH ×2 (11:54→12:35)
[2023-02-21] MEDS: AMINO ACIDS/PROTEIN HYDROLYS 30 ML LIQUID.PKT NGT SCH ×2 (11:54→18:08)
[2023-02-21] MEDS: ACETAMINOPHEN 1000 MG/100 ML BAG IVPB PRN (17:11)
[2023-02-21] MEDS ORDERED: PIPERACILLIN/TAZOBACTAM 3.375 GM VIAL IVPB ONE (21:14)
[2023-02-21 21:15] LABS: BASO % 0.5 % (0-2.0); EOS % 1.4 % (0-4.5); HEMATOCRIT 25.4 % (32.4-45.2); LYMPH % 13.5 % (8-40); MCH 26.4 pg (25.7-33.7); MCHC 31.5 g/dl (32.0-36.0); MEAN CELL VOLUME 83.7 fl (80-96); MEAN PLT VOLUME 9.5 fl (7.5-11.1); MONO % 11.8 % (3.8-10.2); NEUT % 72.8 % (42.8-82.8); PLATELET COUNT 349 10^3/uL (134-434); RBC 3.03 M/mm3 (3.60-5.2); RDW 20.1 % (11.6-15.6); WHITE BLOOD COUNT 9.6 K/mm3 (4.0-10.0)
[2023-02-21 21:50] LABS: CHLORIDE 106 mmol/L (98-107); SODIUM 138 mmol/L (136-145)
[2023-02-21 21:52] LABS: CALCIUM 8.8 mg/dL (8.5-10.1)
[2023-02-21 21:53] LABS: ANION GAP 9 MMOL/L (8-16); BLOOD UREA NITROGEN 59.6 mg/dL (7-18); CO2 23 mmol/L (21-32); GLUCOSE,RANDOM 103 mg/dL (74-106)
[2023-02-21 21:56] LABS: CREATININE 1.6 mg/dL (0.55-1.3); SGOT/AST 17 U/L (15-37); SGPT/ALT < 6 U/L (13-61)
[2023-02-21 21:58] LABS: BILIRUBIN,TOTAL 0.2 mg/dL (0.2-1); TOT PROT 5.6 g/dl (6.4-8.2)
[2023-02-21 21:59] LABS: ALK PHOS 149 U/L (45-117)
[2023-02-22] MEDS: MAG HYDROX/ALH/SMC/DPHA/LIDO 240 ML MOUTHWASH MM SCH ×3 (00:21→12:25)
[2023-02-22] MEDS: ACETAMINOPHEN 1000 MG/100 ML BAG IVPB PRN (02:07)
[2023-02-22] MEDS: PIPERACILLIN/TAZOB 3.375 GM 3.375 GM in DEXTROSE 5%-WATER - 50 ML IVPB SCH ×4 (02:52→22:45)
[2023-02-22] MEDS ORDERED: INSULIN (NOVOLOG) ASPART 100 UNITS/ML 10ML VIAL ONE (05:43)
[2023-02-22] MEDS: INSULIN SLIDING SCALE (NOVOLOG) 1 VIAL SQ SCH ×2 (07:14→17:14)
[2023-02-22 08:46] LABS: INR 1.02 (0.83-1.09); PROTHROMBIN TIME (PATIENT) 11.8 SEC (9.7-13.0)
[2023-02-22 08:47] LABS: BASO % 0.4 % (0-2.0); EOS % 1.9 % (0-4.5); HEMATOCRIT 21.5 % (32.4-45.2); LYMPH % 14.4 % (8-40); MCH 27.3 pg (25.7-33.7); MCHC 32.5 g/dl (32.0-36.0); MEAN CELL VOLUME 84.1 fl (80-96); MEAN PLT VOLUME 9.6 fl (7.5-11.1); MONO % 8.7 % (3.8-10.2); NEUT % 74.6 % (42.8-82.8); PLATELET COUNT 387 10^3/uL (134-434); RBC 2.55 M/mm3 (3.60-5.2); RDW 19.6 % (11.6-15.6); WHITE BLOOD COUNT 9.9 K/mm3 (4.0-10.0)
[2023-02-22 08:56] LABS: CHLORIDE 109 mmol/L (98-107); SODIUM 139 mmol/L (136-145)
[2023-02-22] MEDS ORDERED: MINERAL OIL 30 ML UNIT-DOSE CUP PO ONE (09:03)
[2023-02-22] MEDS: AMINO ACIDS/PROTEIN HYDROLYS 30 ML LIQUID.PKT NGT SCH ×2 (09:08→17:10)
[2023-02-22] MEDS: ZINC SULFATE 220 MG CAPSULE (FP) NGT SCH ×2 (09:08→15:03)
[2023-02-22] MEDS: ASCORBIC ACID 500 MG/5 ML UNIT DOSE CUP NGT SCH ×2 (09:08→15:03)
[2023-02-22] MEDS: MIDODRINE HCL 5 MG TABLET GT SCH ×4 (09:08→17:10)
[2023-02-22 09:16] LABS: ANION GAP 9 MMOL/L (8-16); BLOOD UREA NITROGEN 63.1 mg/dL (7-18); CALCIUM 8.6 mg/dL (8.5-10.1); CO2 21 mmol/L (21-32); GLUCOSE,RANDOM 109 mg/dL (74-106); MAGNESIUM 1.8 mg/dL (1.8-2.4)
[2023-02-22 09:19] LABS: CREATININE 1.6 mg/dL (0.55-1.3); SGOT/AST 14 U/L (15-37)
[2023-02-22 09:20] LABS: BILIRUBIN,TOTAL 0.2 mg/dL (0.2-1); TOT PROT 5.4 g/dl (6.4-8.2)
[2023-02-22 09:21] LABS: ALK PHOS 157 U/L (45-117)
[2023-02-22 09:26] LABS: SGPT/ALT < 6 U/L (13-61)
[2023-02-22] MEDS ORDERED: BENZOIN/ALOE VERA/STORAX/TOLU 58 ML BOTTLE TP ONE (10:00)
[2023-02-22] MEDS: LEVOTHYROXINE SODIUM 100 MCG 5 ML VIAL IVPUSH SCH (10:02)
[2023-02-22] MEDS: PANTOPRAZOLE SODIUM 40 MG VIAL IVPUSH SCH ×2 (10:03→22:47)
[2023-02-22] MEDS: COLLAGENASE CLOSTRIDIUM HIST. 30 GRAMS TUBE TP SCH ×2 (10:10)
[2023-02-22] MEDS: LYTES/YERBA SANTA 240 ML BOTTLE MM SCH (10:10)
[2023-02-22] MEDS: DEXTROSE 5%-WATER - 1,000 ML IV SCH ×2 (15:10→17:12)
[2023-02-23] MEDS: PIPERACILLIN/TAZOB 3.375 GM 3.375 GM in DEXTROSE 5%-WATER - 50 ML IVPB SCH ×2 (03:11→09:52)
[2023-02-23] MEDS: INSULIN SLIDING SCALE (NOVOLOG) 1 VIAL SQ SCH ×2 (06:37→17:01)
[2023-02-23] MEDS ORDERED: INSULIN (LEVEMIR) 100 UNITS/ML UNITS SQ ONE (06:54)
[2023-02-23] MEDS ORDERED: INSULIN (NOVOLOG) ASPART 100 UNITS/ML 10ML VIAL ONE (06:54)
[2023-02-23] MEDS: AMINO ACIDS/PROTEIN HYDROLYS 30 ML LIQUID.PKT NGT SCH ×2 (07:19→17:04)
[2023-02-23 08:57] LABS: HEMATOCRIT 25.2 % (32.4-45.2); HEMOGLOBIN 8.6 GM/dL (10.7-15.3); MCHC 34.1 g/dl (32.0-36.0); MEAN CELL VOLUME 82.2 fl (80-96); MEAN PLT VOLUME 9.4 fl (7.5-11.1); PLATELET COUNT 504 10^3/uL (134-434); RBC 3.06 M/mm3 (3.60-5.2); WHITE BLOOD COUNT 8.5 K/mm3 (4.0-10.0)
[2023-02-23] MEDS: MIDODRINE HCL 5 MG TABLET GT SCH ×3 (09:01→17:05)
[2023-02-23] MEDS: ZINC SULFATE 220 MG CAPSULE (FP) NGT SCH ×2 (09:01→17:05)
[2023-02-23 09:15] LABS: INR 1.04 (0.83-1.09); PROTHROMBIN TIME (PATIENT) 12.1 SEC (9.7-13.0)
[2023-02-23 09:22] LABS: CHLORIDE 108 mmol/L (98-107); SODIUM 139 mmol/L (136-145)
[2023-02-23 09:37] LABS: BLOOD UREA NITROGEN 58.1 mg/dL (7-18); GLUCOSE,RANDOM 109 mg/dL (74-106)
[2023-02-23 09:38] LABS: ANION GAP 8 MMOL/L (8-16); CALCIUM 8.8 mg/dL (8.5-10.1); CO2 23 mmol/L (21-32); MAGNESIUM 1.7 mg/dL (1.8-2.4)
[2023-02-23 09:40] LABS: CREATININE 1.5 mg/dL (0.55-1.3); SGOT/AST 16 U/L (15-37)
[2023-02-23 09:42] LABS: BILIRUBIN,TOTAL 0.3 mg/dL (0.2-1); TOT PROT 5.5 g/dl (6.4-8.2)
[2023-02-23 09:43] LABS: ALK PHOS 157 U/L (45-117)
[2023-02-23] MEDS: PANTOPRAZOLE SODIUM 40 MG VIAL IVPUSH SCH (09:51)
[2023-02-23] MEDS: LEVOTHYROXINE SODIUM 100 MCG 5 ML VIAL IVPUSH SCH (09:51)
[2023-02-23] MEDS: ASCORBIC ACID 500 MG/5 ML UNIT DOSE CUP NGT SCH ×2 (09:52→17:05)
[2023-02-23 09:54] LABS: SGPT/ALT < 6 U/L (13-61)
[2023-02-23] MEDS: COLLAGENASE CLOSTRIDIUM HIST. 30 GRAMS TUBE TP SCH ×2 (09:57)
[2023-02-23] MEDS: MINERAL OIL 30 ML UNIT-DOSE CUP PO PRN (09:57)
[2023-02-23 10:13] LABS: ANISOCYTOSIS 2+; MACROCYTOSIS 1+
[2023-02-23] MEDS ORDERED: FENTANYL CITRATE/PF 50 MCG/ML VIAL ONE (13:26)
[2023-02-23] MEDS ORDERED: MIDAZOLAM HCL 2 MG/2 ML SINGLE DOSE VIAL ONE (13:26)
[2023-02-23] MEDS: ACETAMINOPHEN 1000 MG/100 ML BAG IVPB PRN (18:14)
[2023-02-23] MEDS ORDERED: PANTOPRAZOLE 40 MG TABLET PO SCH (22:00)
[2023-02-24] MEDS: DEXTROSE 5%-WATER - 1,000 ML IV SCH ×2 (04:36→17:15)
[2023-02-24] MEDS: ACETAMINOPHEN 1000 MG/100 ML BAG IVPB PRN ×2 (04:38→10:18)
[2023-02-24] MEDS: INSULIN SLIDING SCALE (NOVOLOG) 1 VIAL SQ SCH ×2 (06:25→17:14)
[2023-02-24 08:48] LABS: INR 1.06 (0.83-1.09); PROTHROMBIN TIME (PATIENT) 12.3 SEC (9.7-13.0)
[2023-02-24 08:50] LABS: HEMATOCRIT 25.1 % (32.4-45.2); HEMOGLOBIN 8.5 GM/dL (10.7-15.3); MCH 27.9 pg (25.7-33.7); MCHC 33.8 g/dl (32.0-36.0); MEAN CELL VOLUME 82.6 fl (80-96); MEAN PLT VOLUME 8.8 fl (7.5-11.1); PLATELET COUNT 584 10^3/uL (134-434); RBC 3.05 M/mm3 (3.60-5.2); RDW 19.2 % (11.6-15.6); WHITE BLOOD COUNT 9.8 K/mm3 (4.0-10.0)
[2023-02-24 09:08] LABS: CHLORIDE 109 mmol/L (98-107); SODIUM 139 mmol/L (136-145)
[2023-02-24 09:25] LABS: ANION GAP 6 MMOL/L (8-16); BLOOD UREA NITROGEN 57.4 mg/dL (7-18); CALCIUM 9.1 mg/dL (8.5-10.1); CO2 24 mmol/L (21-32); GLUCOSE,RANDOM 101 mg/dL (74-106); MAGNESIUM 1.9 mg/dL (1.8-2.4)
[2023-02-24 09:26] LABS: ALBUMIN 1.1 g/dl (3.4-5.0)
[2023-02-24 09:29] LABS: CREATININE 1.4 mg/dL (0.55-1.3); SGOT/AST 18 U/L (15-37)
[2023-02-24 09:30] LABS: BILIRUBIN,TOTAL 0.2 mg/dL (0.2-1); TOT PROT 5.9 g/dl (6.4-8.2)
[2023-02-24 09:31] LABS: ALK PHOS 163 U/L (45-117)
[2023-02-24 09:32] LABS: SGPT/ALT < 6 U/L (13-61)
[2023-02-24] MEDS: PANTOPRAZOLE SODIUM 40 MG VIAL IVPUSH SCH (09:45)
[2023-02-24] MEDS: AMINO ACIDS/PROTEIN HYDROLYS 30 ML LIQUID.PKT NGT SCH ×2 (09:45→17:15)
[2023-02-24] MEDS: ENOXAPARIN NA (PORCINE) 40 MG/0.4 ML DISP.SYRIN SQ SCH (09:45)
[2023-02-24] MEDS: LEVOTHYROXINE SODIUM 100 MCG 5 ML VIAL IVPUSH SCH (09:46)
[2023-02-24] MEDS: ASCORBIC ACID 500 MG/5 ML UNIT DOSE CUP NGT SCH (09:46)
[2023-02-24] MEDS: MIDODRINE HCL 5 MG TABLET GT SCH ×3 (09:46→17:14)
[2023-02-24] MEDS: COLLAGENASE CLOSTRIDIUM HIST. 30 GRAMS TUBE TP SCH (09:53)
[2023-02-24] MEDS ORDERED: PANTOPRAZOLE SODIUM 40 MG in SODIUM CHLORIDE 100 ML IVPB SCH (10:00)
[2023-02-24 11:16] LABS: ANISOCYTOSIS 0; MACROCYTOSIS 0
[2023-02-25] MEDS ORDERED: AMINO ACIDS/PROTEIN HYDROLYS 30 ML LIQUID.PKT GT SCH (08:38)
[2023-02-25] MEDS: INSULIN SLIDING SCALE (NOVOLOG) 1 VIAL SQ SCH ×2 (08:44→17:50)
[2023-02-25] MEDS ORDERED: ACETAMINOPHEN 1000 MG/100 ML BAG IVPB PRN (08:50)
[2023-02-25 09:07] LABS: INR 1.11 (0.83-1.09); PROTHROMBIN TIME (PATIENT) 12.9 SEC (9.7-13.0)
[2023-02-25 09:14] LABS: BASO % 0.2 % (0-2.0); EOS % 1.1 % (0-4.5); HEMATOCRIT 25.3 % (32.4-45.2); HEMOGLOBIN 8.4 GM/dL (10.7-15.3); LYMPH % 18.8 % (8-40); MCH 27.7 pg (25.7-33.7); MCHC 33.2 g/dl (32.0-36.0); MEAN CELL VOLUME 83.5 fl (80-96); MEAN PLT VOLUME 8.3 fl (7.5-11.1); MONO % 10.7 % (3.8-10.2); NEUT % 69.2 % (42.8-82.8); PLATELET COUNT 645 10^3/uL (134-434); RBC 3.03 M/mm3 (3.60-5.2); RDW 19.1 % (11.6-15.6); WHITE BLOOD COUNT 10.5 K/mm3 (4.0-10.0)
[2023-02-25 09:17] LABS: CHLORIDE 110 mmol/L (98-107); SODIUM 140 mmol/L (136-145)
[2023-02-25 09:23] LABS: BLOOD UREA NITROGEN 49.6 mg/dL (7-18)
[2023-02-25] MEDS: ENOXAPARIN NA (PORCINE) 40 MG/0.4 ML DISP.SYRIN SQ SCH (09:23)
[2023-02-25] MEDS: ASCORBIC ACID 500 MG/5 ML UNIT DOSE CUP GT SCH (09:23)
[2023-02-25] MEDS: COLLAGENASE CLOSTRIDIUM HIST. 30 GRAMS TUBE TP SCH ×2 (09:23→12:39)
[2023-02-25] MEDS: MIDODRINE HCL 5 MG TABLET GT SCH ×3 (09:23→15:20)
[2023-02-25] MEDS: AMINO ACIDS/PROTEIN HYDROLYS 30 ML LIQUID.PKT NGT SCH ×2 (09:24→17:47)
[2023-02-25 09:25] LABS: CALCIUM 9.2 mg/dL (8.5-10.1)
[2023-02-25 09:26] LABS: ANION GAP 6 MMOL/L (8-16); CO2 24 mmol/L (21-32); CREATININE 1.1 mg/dL (0.55-1.3); GLUCOSE,RANDOM 94 mg/dL (74-106); MAGNESIUM 1.9 mg/dL (1.8-2.4); SGOT/AST 15 U/L (15-37)
[2023-02-25 09:27] LABS: BILIRUBIN,TOTAL 0.2 mg/dL (0.2-1); TOT PROT 5.7 g/dl (6.4-8.2)
[2023-02-25 09:32] LABS: ALK PHOS 166 U/L (45-117); SGPT/ALT < 6 U/L (13-61)
[2023-02-25] MEDS ORDERED: ACETAMINOPHEN 650 MG/20.3 ML ORAL SOLUTION (CUPS) GT PRN (10:11)
[2023-02-25] MEDS ORDERED: AMINO ACIDS/PROTEIN HYDROLYS 30 ML LIQUID.PKT GT ONE (10:20)
[2023-02-25] MEDS: PANTOPRAZOLE SODIUM 40 MG VIAL IVPUSH SCH (10:54)
[2023-02-25] MEDS: LEVOTHYROXINE SODIUM 100 MCG 5 ML VIAL IVPUSH SCH (10:54)
[2023-02-25] MEDS ORDERED: FAMOTIDINE 40 MG/5 ML ORAL SUSPENSION PEG SCH (11:00)
[2023-02-25] MEDS ORDERED: LEVOTHYROXINE 100 MCG, LEVOTHYROXINE 75 MCG GT ONE (12:45)
[2023-02-25] MEDS ORDERED: KCL 10 MEQ IVPB 10 MEQ/100 ML INFUS.BAG IVPB SCH (13:45)
[2023-02-25] MEDS: POTASSIUM CHLORIDE ORAL LIQUID 20 MEQ/15 ML GT ONE ×2 (14:23→15:14)
[2023-02-25] MEDS ORDERED: ACETAMINOPHEN 650 MG/20.3 ML ORAL SOLUTION (CUPS) NGT PRN (15:08)
[2023-02-25] MEDS ORDERED: MIDODRINE HCL 5 MG TABLET NGT SCH (15:08)
[2023-02-25] MEDS ORDERED: POTASSIUM CHLORIDE ORAL LIQUID 20 MEQ/15 ML NGT ONE (15:12)
[2023-02-25] MEDS: DEXTROSE 5%-WATER - 1,000 ML IV SCH (17:06)
[2023-02-25] MEDS: MIDODRINE HCL 2.5 MG, MIDODRINE HCL 5 MG NGT SCH (17:47)
[2023-02-26] MEDS: INSULIN SLIDING SCALE (NOVOLOG) 1 VIAL SQ SCH ×2 (06:27→17:28)
[2023-02-26] MEDS: LEVOTHYROXINE 100 MCG, LEVOTHYROXINE 75 MCG NGT SCH ×2 (06:33→07:21)
[2023-02-26] MEDS ORDERED: LEVOTHYROXINE 100 MCG, LEVOTHYROXINE 75 MCG GT SCH (07:00)
[2023-02-26] MEDS: AMINO ACIDS/PROTEIN HYDROLYS 30 ML LIQUID.PKT NGT SCH ×2 (07:41→17:13)
[2023-02-26] MEDS: FAMOTIDINE 40 MG/5 ML ORAL SUSPENSION NGT SCH (09:25)
[2023-02-26] MEDS: MIDODRINE HCL 2.5 MG, MIDODRINE HCL 5 MG NGT SCH ×3 (09:25→17:14)
[2023-02-26] MEDS: ASCORBIC ACID 500 MG/5 ML UNIT DOSE CUP GT SCH (09:25)
[2023-02-26 09:33] LABS: BASO % 0.5 % (0-2.0); EOS % 1.2 % (0-4.5); HEMATOCRIT 24.9 % (32.4-45.2); HEMOGLOBIN 8.2 GM/dL (10.7-15.3); LYMPH % 16.9 % (8-40); MCH 27.7 pg (25.7-33.7); MCHC 32.8 g/dl (32.0-36.0); MEAN CELL VOLUME 84.4 fl (80-96); MEAN PLT VOLUME 8.2 fl (7.5-11.1); MONO % 10.4 % (3.8-10.2); PLATELET COUNT 691 10^3/uL (134-434); RBC 2.95 M/mm3 (3.60-5.2); RDW 19.4 % (11.6-15.6); WHITE BLOOD COUNT 10.6 K/mm3 (4.0-10.0)
[2023-02-26 09:41] LABS: INR 1.12 (0.83-1.09)
[2023-02-26] MEDS: COLLAGENASE CLOSTRIDIUM HIST. 30 GRAMS TUBE TP SCH ×2 (09:51)
[2023-02-26] MEDS: ENOXAPARIN NA (PORCINE) 40 MG/0.4 ML DISP.SYRIN SQ SCH (09:51)
[2023-02-26] MEDS ORDERED: LEVOTHYROXINE NA 150 MCG TABLET GT SCH (10:00)
[2023-02-26 10:03] LABS: CHLORIDE 110 mmol/L (98-107); SODIUM 139 mmol/L (136-145)
[2023-02-26 10:06] LABS: CALCIUM 9.1 mg/dL (8.5-10.1); GLUCOSE,RANDOM 94 mg/dL (74-106)
[2023-02-26 10:07] LABS: ANION GAP 6 MMOL/L (8-16); BLOOD UREA NITROGEN 43.1 mg/dL (7-18); CO2 23 mmol/L (21-32); MAGNESIUM 1.8 mg/dL (1.8-2.4)
[2023-02-26 10:09] LABS: SGPT/ALT < 6 U/L (13-61)
[2023-02-26 10:10] LABS: CREATININE 0.9 mg/dL (0.55-1.3); SGOT/AST 16 U/L (15-37)
[2023-02-26 10:11] LABS: BILIRUBIN,TOTAL 0.2 mg/dL (0.2-1); TOT PROT 5.7 g/dl (6.4-8.2)
[2023-02-26 10:12] LABS: ALK PHOS 163 U/L (45-117)
[2023-02-26] MEDS ORDERED: LEVOTHYROXINE NA 150 MCG TABLET PO ONE (12:03)
[2023-02-26] MEDS: DEXTROSE 5%-WATER - 1,000 ML IV SCH (15:56)
[2023-02-26] MEDS: LEVOTHYROXINE SODIUM 100 MCG 5 ML VIAL IVPUSH SCH (17:28)
[2023-02-27] MEDS: INSULIN SLIDING SCALE (NOVOLOG) 1 VIAL SQ SCH ×2 (06:08→18:08)
[2023-02-27] MEDS: LEVOTHYROXINE SODIUM 100 MCG 5 ML VIAL IVPUSH SCH (06:10)
[2023-02-27] MEDS: AMINO ACIDS/PROTEIN HYDROLYS 30 ML LIQUID.PKT NGT SCH ×3 (07:43→18:05)
[2023-02-27] MEDS: MIDODRINE HCL 2.5 MG, MIDODRINE HCL 5 MG NGT SCH ×3 (09:09→18:04)
[2023-02-27] MEDS: ASCORBIC ACID 500 MG/5 ML UNIT DOSE CUP GT SCH ×2 (09:09→14:56)
[2023-02-27] MEDS: FAMOTIDINE 40 MG/5 ML ORAL SUSPENSION NGT SCH ×2 (09:09→14:57)
[2023-02-27] MEDS: ENOXAPARIN NA (PORCINE) 40 MG/0.4 ML DISP.SYRIN SQ SCH (09:18)
[2023-02-27] MEDS: COLLAGENASE CLOSTRIDIUM HIST. 30 GRAMS TUBE TP SCH ×2 (09:19)
[2023-02-27 09:39] LABS: BASO % 0.4 % (0-2.0); EOS % 0.9 % (0-4.5); HEMOGLOBIN 8.2 GM/dL (10.7-15.3); LYMPH % 15.1 % (8-40); MCH 28.5 pg (25.7-33.7); MCHC 34.1 g/dl (32.0-36.0); MEAN CELL VOLUME 83.6 fl (80-96); MEAN PLT VOLUME 7.7 fl (7.5-11.1); MONO % 9.9 % (3.8-10.2); NEUT % 73.7 % (42.8-82.8); PLATELET COUNT 673 10^3/uL (134-434); RBC 2.87 M/mm3 (3.60-5.2); RDW 19.2 % (11.6-15.6); WHITE BLOOD COUNT 13.1 K/mm3 (4.0-10.0)
[2023-02-27 09:43] LABS: INR 1.16 (0.83-1.09); PROTHROMBIN TIME (PATIENT) 13.4 SEC (9.7-13.0)
[2023-02-27 10:09] LABS: CHLORIDE 109 mmol/L (98-107); SODIUM 138 mmol/L (136-145)
[2023-02-27 10:12] LABS: ALBUMIN 1.1 g/dl (3.4-5.0); ANION GAP 4 MMOL/L (8-16); BLOOD UREA NITROGEN 36.5 mg/dL (7-18); CALCIUM 9.3 mg/dL (8.5-10.1); CO2 25 mmol/L (21-32); GLUCOSE,RANDOM 105 mg/dL (74-106); MAGNESIUM 1.8 mg/dL (1.8-2.4)
[2023-02-27 10:15] LABS: CREATININE 0.8 mg/dL (0.55-1.3)
[2023-02-27 10:16] LABS: SGOT/AST 15 U/L (15-37); SGPT/ALT < 6 U/L (13-61)
[2023-02-27 10:17] LABS: BILIRUBIN,TOTAL 0.2 mg/dL (0.2-1); TOT PROT 5.8 g/dl (6.4-8.2)
[2023-02-27 10:18] LABS: ALK PHOS 157 U/L (45-117)
[2023-02-27] MEDS ORDERED: FENTANYL CITRATE/PF 50 MCG/ML VIAL ONE (10:35)
[2023-02-27] MEDS ORDERED: MIDAZOLAM HCL 2 MG/2 ML SINGLE DOSE VIAL ONE (10:35)
[2023-02-27] MEDS: MIDAZOLAM HCL 2 MG/2 ML SINGLE DOSE VIAL IVPUSH ONE ×2 (10:55→12:20)
[2023-02-27] MEDS: MINERAL OIL 30 ML UNIT-DOSE CUP PO PRN (15:00)
[2023-02-27] MEDS: DEXTROSE 5%-WATER - 1,000 ML IV SCH (18:06)
[2023-02-28] MEDS: ACETAMINOPHEN 1000 MG/100 ML BAG IVPB PRN ×2 (05:12→15:36)
[2023-02-28] MEDS: INSULIN SLIDING SCALE (NOVOLOG) 1 VIAL SQ SCH ×2 (07:48→16:45)
[2023-02-28] MEDS: LEVOTHYROXINE SODIUM 100 MCG 5 ML VIAL IVPUSH SCH (07:55)
[2023-02-28] MEDS: MIDODRINE HCL 2.5 MG, MIDODRINE HCL 5 MG NGT SCH (09:14)
[2023-02-28] MEDS: AMINO ACIDS/PROTEIN HYDROLYS 30 ML LIQUID.PKT NGT SCH (09:15)
[2023-02-28] MEDS: ENOXAPARIN NA (PORCINE) 40 MG/0.4 ML DISP.SYRIN SQ SCH (09:15)
[2023-02-28] MEDS: ASCORBIC ACID 500 MG/5 ML UNIT DOSE CUP GT SCH (09:15)
[2023-02-28] MEDS: FAMOTIDINE 40 MG/5 ML ORAL SUSPENSION NGT SCH (09:16)
[2023-02-28 09:38] LABS: BLOOD UREA NITROGEN 34.7 mg/dL (7-18)
[2023-02-28 09:39] LABS: CALCIUM 9.4 mg/dL (8.5-10.1)
[2023-02-28 09:40] LABS: MAGNESIUM 1.8 mg/dL (1.8-2.4)
[2023-02-28 09:41] LABS: CREATININE 0.7 mg/dL (0.55-1.3)
[2023-02-28 09:43] LABS: BILIRUBIN,TOTAL 0.3 mg/dL (0.2-1); TOT PROT 5.5 g/dl (6.4-8.2)
[2023-02-28 10:20] LABS: BASO % 0.5 % (0-2.0); HEMOGLOBIN 7.7 GM/dL (10.7-15.3); LYMPH % 16.7 % (8-40); MCH 27.4 pg (25.7-33.7); MCHC 32.1 g/dl (32.0-36.0); MEAN CELL VOLUME 85.3 fl (80-96); MEAN PLT VOLUME 8.1 fl (7.5-11.1); MONO % 11.8 % (3.8-10.2); PLATELET COUNT 635 10^3/uL (134-434); RBC 2.82 M/mm3 (3.60-5.2); RDW 20.8 % (11.6-15.6); WHITE BLOOD COUNT 13.2 K/mm3 (4.0-10.0)
[2023-02-28] MEDS ORDERED: POTASSIUM CHLORIDE ORAL LIQUID 20 MEQ/15 ML NGT ONE (10:24)
[2023-02-28 10:42] LABS: ANISOCYTOSIS 1+; MACROCYTOSIS 1+
[2023-02-28] MEDS ORDERED: MIDODRINE HCL 2.5 MG, MIDODRINE HCL 5 MG GT SCH (12:54)
[2023-02-28] MEDS ORDERED: MINERAL OIL 30 ML UNIT-DOSE CUP GT PRN (12:54)
[2023-02-28] MEDS: FAMOTIDINE 40 MG/5 ML ORAL SUSPENSION GT SCH (13:33)
[2023-02-28] MEDS: MIDODRINE HCL 2.5 MG, MIDODRINE HCL 5 MG GT SCH ×2 (15:36→22:59)
[2023-02-28] MEDS: AMINO ACIDS/PROTEIN HYDROLYS 30 ML LIQUID.PKT GT SCH (16:37)
[2023-02-28] MEDS: COLLAGENASE CLOSTRIDIUM HIST. 30 GRAMS TUBE TP SCH ×2 (16:37→16:38)
[2023-02-28] MEDS: DEXTROSE 5%-WATER - 1,000 ML IV SCH ×2 (16:37→17:54)
[2023-02-28] MEDS: MINERAL OIL 30 ML UNIT-DOSE CUP PO PRN (16:57)
[2023-03-01] MEDS: MIDODRINE HCL 2.5 MG, MIDODRINE HCL 5 MG GT SCH ×3 (06:28→22:04)
[2023-03-01] MEDS: LEVOTHYROXINE SODIUM 100 MCG 5 ML VIAL IVPUSH SCH (06:29)
[2023-03-01] MEDS ORDERED: ACETAMINOPHEN 1000 MG/100 ML BAG IVPB ONE (09:30)
[2023-03-01 09:56] LABS: BASO % 0.6 % (0-2.0); EOS % 0.4 % (0-4.5); HEMATOCRIT 24.1 % (32.4-45.2); HEMOGLOBIN 7.8 GM/dL (10.7-15.3); LYMPH % 13.7 % (8-40); MCH 27.8 pg (25.7-33.7); MCHC 32.4 g/dl (32.0-36.0); MEAN CELL VOLUME 85.7 fl (80-96); MEAN PLT VOLUME 7.9 fl (7.5-11.1); MONO % 13.2 % (3.8-10.2); NEUT % 72.1 % (42.8-82.8); PLATELET COUNT 573 10^3/uL (134-434); RBC 2.81 M/mm3 (3.60-5.2); RDW 20.8 % (11.6-15.6); WHITE BLOOD COUNT 18.3 K/mm3 (4.0-10.0)
[2023-03-01] MEDS: AMINO ACIDS/PROTEIN HYDROLYS 30 ML LIQUID.PKT GT SCH ×2 (09:58→17:38)
[2023-03-01] MEDS: ENOXAPARIN NA (PORCINE) 40 MG/0.4 ML DISP.SYRIN SQ SCH (09:59)
[2023-03-01] MEDS: ASCORBIC ACID 500 MG/5 ML UNIT DOSE CUP GT SCH (09:59)
[2023-03-01] MEDS: COLLAGENASE CLOSTRIDIUM HIST. 30 GRAMS TUBE TP SCH ×2 (10:00→10:02)
[2023-03-01] MEDS ORDERED: PIPERACILLIN/TAZOB 3.375 GM 3.375 GM in DEXTROSE 5%-WATER - 50 ML IVPB SCH (10:00)
[2023-03-01] MEDS: FAMOTIDINE 40 MG/5 ML ORAL SUSPENSION GT SCH (10:01)
[2023-03-01 10:13] LABS: CALCIUM 9.2 mg/dL (8.5-10.1)
[2023-03-01 10:14] LABS: BLOOD UREA NITROGEN 36.4 mg/dL (7-18); MAGNESIUM 1.7 mg/dL (1.8-2.4)
[2023-03-01 10:18] LABS: BILIRUBIN,TOTAL 0.2 mg/dL (0.2-1); TOT PROT 5.6 g/dl (6.4-8.2)
[2023-03-01] MEDS: METOCLOPRAMIDE HCL INJECTION 10 MG/2 ML VIAL IVPUSH SCH ×2 (15:55→22:04)
[2023-03-01] MEDS ORDERED: MAGNESIUM 2GM/50ML STERILE WATER IVPB IVPB ONE (16:05)
[2023-03-01] MEDS ORDERED: FUROSEMIDE 40 MG/4 ML INJECTABLE VIAL IVPUSH ONE (17:37)
[2023-03-01] MEDS: PIPERACILLIN/TAZOB 3.375 GM 3.375 GM in DEXTROSE 5%-WATER - 50 ML IVPB SCH (17:38)
[2023-03-01] MEDS: ACETAMINOPHEN 650 MG/20.3 ML ORAL SOLUTION (CUPS) PO PRN (22:05)
[2023-03-02] MEDS: PIPERACILLIN/TAZOB 3.375 GM 3.375 GM in DEXTROSE 5%-WATER - 50 ML IVPB SCH ×3 (02:01→17:52)
[2023-03-02] MEDS: METOCLOPRAMIDE HCL INJECTION 10 MG/2 ML VIAL IVPUSH SCH ×4 (02:39→21:53)
[2023-03-02] MEDS: MIDODRINE HCL 2.5 MG, MIDODRINE HCL 5 MG GT SCH ×3 (06:44→21:54)
[2023-03-02] MEDS: LEVOTHYROXINE SODIUM 100 MCG 5 ML VIAL IVPUSH SCH (06:45)
[2023-03-02] MEDS: ACETAMINOPHEN 650 MG/20.3 ML ORAL SOLUTION (CUPS) PO PRN ×2 (08:04→18:00)
[2023-03-02] MEDS: AMINO ACIDS/PROTEIN HYDROLYS 30 ML LIQUID.PKT GT SCH ×2 (08:05→17:52)
[2023-03-02] MEDS: ENOXAPARIN NA (PORCINE) 40 MG/0.4 ML DISP.SYRIN SQ SCH (10:15)
[2023-03-02] MEDS: ASCORBIC ACID 500 MG/5 ML UNIT DOSE CUP GT SCH (10:16)
[2023-03-02] MEDS: FAMOTIDINE 40 MG/5 ML ORAL SUSPENSION GT SCH (10:17)
[2023-03-02 10:56] LABS: BASO % 0.7 % (0-2.0); EOS % 0.7 % (0-4.5); HEMATOCRIT 23.6 % (32.4-45.2); HEMOGLOBIN 7.7 GM/dL (10.7-15.3); LYMPH % 13.3 % (8-40); MCH 27.9 pg (25.7-33.7); MCHC 32.8 g/dl (32.0-36.0); MEAN CELL VOLUME 85.1 fl (80-96); MEAN PLT VOLUME 7.8 fl (7.5-11.1); MONO % 13.7 % (3.8-10.2); NEUT % 71.6 % (42.8-82.8); PLATELET COUNT 521 10^3/uL (134-434); RBC 2.77 M/mm3 (3.60-5.2); RDW 20.4 % (11.6-15.6); WHITE BLOOD COUNT 18.5 K/mm3 (4.0-10.0)
[2023-03-02 11:20] LABS: CHLORIDE 109 mmol/L (98-107); SODIUM 141 mmol/L (136-145)
[2023-03-02 11:23] LABS: CALCIUM 9.2 mg/dL (8.5-10.1)
[2023-03-02 11:24] LABS: ANION GAP 8 MMOL/L (8-16); BLOOD UREA NITROGEN 38.5 mg/dL (7-18); CO2 24 mmol/L (21-32); GLUCOSE,RANDOM 168 mg/dL (74-106)
[2023-03-02 11:27] LABS: CREATININE 0.9 mg/dL (0.55-1.3); SGOT/AST 9 U/L (15-37)
[2023-03-02 11:28] LABS: BILIRUBIN,TOTAL 0.4 mg/dL (0.2-1); TOT PROT 5.5 g/dl (6.4-8.2)
[2023-03-02 11:29] LABS: ALK PHOS 158 U/L (45-117)
[2023-03-02 11:37] LABS: SGPT/ALT < 6 U/L (13-61)
[2023-03-02] MEDS: COLLAGENASE CLOSTRIDIUM HIST. 30 GRAMS TUBE TP SCH ×2 (12:22)
[2023-03-02] MEDS: SODIUM HYPOCHLORITE 0.25%- 473 ML BULK BOTTLE TP SCH (17:47)
[2023-03-03] MEDS: PIPERACILLIN/TAZOB 3.375 GM 3.375 GM in DEXTROSE 5%-WATER - 50 ML IVPB SCH ×3 (01:34→17:12)
[2023-03-03] MEDS: METOCLOPRAMIDE HCL INJECTION 10 MG/2 ML VIAL IVPUSH SCH ×4 (04:14→22:25)
[2023-03-03] MEDS: LEVOTHYROXINE SODIUM 100 MCG 5 ML VIAL IVPUSH SCH (07:06)
[2023-03-03] MEDS: MIDODRINE HCL 2.5 MG, MIDODRINE HCL 5 MG GT SCH ×3 (07:07→22:26)
[2023-03-03 09:48] LABS: BASO % 0.7 % (0-2.0); EOS % 0.7 % (0-4.5); HEMATOCRIT 24.9 % (32.4-45.2); HEMOGLOBIN 8.1 GM/dL (10.7-15.3); LYMPH % 16.2 % (8-40); MCH 28.5 pg (25.7-33.7); MCHC 32.7 g/dl (32.0-36.0); MEAN CELL VOLUME 87.1 fl (80-96); MEAN PLT VOLUME 8.1 fl (7.5-11.1); NEUT % 66.4 % (42.8-82.8); PLATELET COUNT 456 10^3/uL (134-434); RBC 2.86 M/mm3 (3.60-5.2); WHITE BLOOD COUNT 14.2 K/mm3 (4.0-10.0)
[2023-03-03 10:12] LABS: BLOOD UREA NITROGEN 39.1 mg/dL (7-18); CALCIUM 9.3 mg/dL (8.5-10.1); MAGNESIUM 1.9 mg/dL (1.8-2.4)
[2023-03-03 10:15] LABS: CREATININE 0.8 mg/dL (0.55-1.3)
[2023-03-03 10:17] LABS: BILIRUBIN,TOTAL 0.2 mg/dL (0.2-1); TOT PROT 5.8 g/dl (6.4-8.2)
[2023-03-03 10:24] LABS: ANISOCYTOSIS 1+; MACROCYTOSIS 1+
[2023-03-03] MEDS: ENOXAPARIN NA (PORCINE) 40 MG/0.4 ML DISP.SYRIN SQ SCH (10:26)
[2023-03-03] MEDS: FAMOTIDINE 40 MG/5 ML ORAL SUSPENSION GT SCH (10:27)
[2023-03-03] MEDS: ASCORBIC ACID 500 MG/5 ML UNIT DOSE CUP GT SCH (10:28)
[2023-03-03] MEDS: AMINO ACIDS/PROTEIN HYDROLYS 30 ML LIQUID.PKT GT SCH ×2 (10:40→17:12)
[2023-03-03] MEDS: SODIUM HYPOCHLORITE 0.25%- 473 ML BULK BOTTLE TP SCH (10:58)
[2023-03-03] MEDS: ACETAMINOPHEN 650 MG/20.3 ML ORAL SOLUTION (CUPS) PO PRN ×2 (11:01→17:14)
[2023-03-04] MEDS: PIPERACILLIN/TAZOB 3.375 GM 3.375 GM in DEXTROSE 5%-WATER - 50 ML IVPB SCH ×2 (01:53→10:44)
[2023-03-04] MEDS: METOCLOPRAMIDE HCL INJECTION 10 MG/2 ML VIAL IVPUSH SCH ×2 (04:10→10:49)
[2023-03-04] MEDS: ACETAMINOPHEN 650 MG/20.3 ML ORAL SOLUTION (CUPS) PO PRN ×2 (06:05→21:36)
[2023-03-04] MEDS: MIDODRINE HCL 2.5 MG, MIDODRINE HCL 5 MG GT SCH ×3 (06:07→21:35)
[2023-03-04] MEDS: LEVOTHYROXINE SODIUM 100 MCG 5 ML VIAL IVPUSH SCH (06:07)
[2023-03-04] MEDS: AMINO ACIDS/PROTEIN HYDROLYS 30 ML LIQUID.PKT GT SCH ×2 (08:37→17:10)
[2023-03-04 08:51] LABS: BASO % 0.4 % (0-2.0); EOS % 0.2 % (0-4.5); HEMOGLOBIN 8.2 GM/dL (10.7-15.3); LYMPH % 12.2 % (8-40); MCH 28.4 pg (25.7-33.7); MCHC 32.8 g/dl (32.0-36.0); MEAN CELL VOLUME 86.5 fl (80-96); MEAN PLT VOLUME 7.6 fl (7.5-11.1); NEUT % 71.2 % (42.8-82.8); PLATELET COUNT 445 10^3/uL (134-434); RBC 2.89 M/mm3 (3.60-5.2); RDW 21.1 % (11.6-15.6); WHITE BLOOD COUNT 17.7 K/mm3 (4.0-10.0)
[2023-03-04 09:54] LABS: BLOOD UREA NITROGEN 47.1 mg/dL (7-18); CALCIUM 9.8 mg/dL (8.5-10.1); MAGNESIUM 2.2 mg/dL (1.8-2.4)
[2023-03-04 09:56] LABS: BILIRUBIN,TOTAL 0.2 mg/dL (0.2-1)
[2023-03-04] MEDS: FAMOTIDINE 40 MG/5 ML ORAL SUSPENSION GT SCH (10:48)
[2023-03-04] MEDS: ASCORBIC ACID 500 MG/5 ML UNIT DOSE CUP GT SCH (10:49)
[2023-03-04] MEDS: ENOXAPARIN NA (PORCINE) 40 MG/0.4 ML DISP.SYRIN SQ SCH (10:50)
[2023-03-04] MEDS: SODIUM HYPOCHLORITE 0.25%- 473 ML BULK BOTTLE TP SCH (14:24)
[2023-03-04] MEDS ORDERED: VANCOMYCIN/WATER FOR INJ (PEG) 1,000 MG/200 ML BAG IVPB ONE (17:30)
[2023-03-04] MEDS: MEROPENEM 1 GM in DEXTROSE 5%-WATER 100 ML IVPB SCH (18:58)
[2023-03-05] MEDS ORDERED: MEROPENEM 1 GM VIAL (RESTRICTED TO ID) IVPB ONE (00:45)
[2023-03-05] MEDS: MEROPENEM 1 GM in DEXTROSE 5%-WATER 100 ML IVPB SCH ×3 (01:20→18:42)
[2023-03-05] MEDS: LEVOTHYROXINE SODIUM 100 MCG 5 ML VIAL IVPUSH SCH (06:09)
[2023-03-05] MEDS: MIDODRINE HCL 2.5 MG, MIDODRINE HCL 5 MG GT SCH ×3 (06:09→21:47)
[2023-03-05 08:03] LABS: BASO % 0.6 % (0-2.0); EOS % 0.5 % (0-4.5); HEMATOCRIT 22.4 % (32.4-45.2); HEMOGLOBIN 7.2 GM/dL (10.7-15.3); LYMPH % 15.4 % (8-40); MCH 27.9 pg (25.7-33.7); MCHC 31.9 g/dl (32.0-36.0); MEAN CELL VOLUME 87.4 fl (80-96); MEAN PLT VOLUME 7.9 fl (7.5-11.1); MONO % 14.5 % (3.8-10.2); PLATELET COUNT 345 10^3/uL (134-434); RBC 2.57 M/mm3 (3.60-5.2); WHITE BLOOD COUNT 17.8 K/mm3 (4.0-10.0)
[2023-03-05 08:07] LABS: CHLORIDE 109 mmol/L (98-107); SODIUM 141 mmol/L (136-145)
[2023-03-05 08:09] LABS: CALCIUM 9.2 mg/dL (8.5-10.1)
[2023-03-05 08:10] LABS: ALBUMIN 0.9 g/dl (3.4-5.0); ANION GAP 6 MMOL/L (8-16); BLOOD UREA NITROGEN 49.4 mg/dL (7-18); CO2 27 mmol/L (21-32); GLUCOSE,RANDOM 148 mg/dL (74-106); MAGNESIUM 1.8 mg/dL (1.8-2.4)
[2023-03-05 08:13] LABS: CREATININE 0.8 mg/dL (0.55-1.3); SGOT/AST 10 U/L (15-37)
[2023-03-05 08:14] LABS: TOT PROT 5.5 g/dl (6.4-8.2)
[2023-03-05 08:15] LABS: BILIRUBIN,TOTAL 0.2 mg/dL (0.2-1)
[2023-03-05 08:16] LABS: ALK PHOS 161 U/L (45-117)
[2023-03-05 08:57] LABS: SGPT/ALT < 6 U/L (13-61)
[2023-03-05] MEDS: AMINO ACIDS/PROTEIN HYDROLYS 30 ML LIQUID.PKT GT SCH ×2 (10:24→18:21)
[2023-03-05] MEDS: ENOXAPARIN NA (PORCINE) 40 MG/0.4 ML DISP.SYRIN SQ SCH (10:24)
[2023-03-05] MEDS: ASCORBIC ACID 500 MG/5 ML UNIT DOSE CUP GT SCH (10:25)
[2023-03-05] MEDS: FAMOTIDINE 40 MG/5 ML ORAL SUSPENSION GT SCH (10:25)
[2023-03-05] MEDS: SODIUM HYPOCHLORITE 0.25%- 473 ML BULK BOTTLE TP SCH (14:20)
[2023-03-05] MEDS: ACETAMINOPHEN 650 MG/20.3 ML ORAL SOLUTION (CUPS) PO PRN (14:38)
[2023-03-06] MEDS ORDERED: MEROPENEM 1 GM VIAL (RESTRICTED TO ID) IVPB ONE (02:31)
[2023-03-06] MEDS: MEROPENEM 1 GM in DEXTROSE 5%-WATER 100 ML IVPB SCH ×3 (02:56→17:46)
[2023-03-06] MEDS: MIDODRINE HCL 2.5 MG, MIDODRINE HCL 5 MG GT SCH ×3 (06:15→22:19)
[2023-03-06] MEDS: LEVOTHYROXINE SODIUM 100 MCG 5 ML VIAL IVPUSH SCH (07:16)
[2023-03-06] MEDS: ASCORBIC ACID 500 MG/5 ML UNIT DOSE CUP GT SCH (09:58)
[2023-03-06] MEDS: FAMOTIDINE 40 MG/5 ML ORAL SUSPENSION GT SCH (09:58)
[2023-03-06] MEDS: ENOXAPARIN NA (PORCINE) 40 MG/0.4 ML DISP.SYRIN SQ SCH (09:58)
[2023-03-06] MEDS: AMINO ACIDS/PROTEIN HYDROLYS 30 ML LIQUID.PKT GT SCH ×2 (09:58→17:48)
[2023-03-06] MEDS: SODIUM HYPOCHLORITE 0.25%- 473 ML BULK BOTTLE TP SCH (09:59)
[2023-03-06] MEDS: MINERAL OIL 30 ML UNIT-DOSE CUP PO PRN (09:59)
[2023-03-06] MEDS ORDERED: LEVOTHYROXINE NA 150 MCG TABLET GT ONE (10:04)
[2023-03-07] MEDS: MEROPENEM 1 GM in DEXTROSE 5%-WATER 100 ML IVPB SCH ×3 (01:14→17:37)
[2023-03-07] MEDS: MIDODRINE HCL 2.5 MG, MIDODRINE HCL 5 MG GT SCH ×3 (05:40→21:44)
[2023-03-07] MEDS ORDERED: LEVOTHYROXINE NA 150 MCG TABLET GT SCH (07:00)
[2023-03-07] MEDS: LEVOTHYROXINE 100 MCG, LEVOTHYROXINE 75 MCG GT SCH (07:06)
[2023-03-07 09:07] LABS: HEMATOCRIT 23.8 % (32.4-45.2); HEMOGLOBIN 7.7 GM/dL (10.7-15.3); MCH 28.2 pg (25.7-33.7); MCHC 32.4 g/dl (32.0-36.0); MEAN CELL VOLUME 87.1 fl (80-96); MEAN PLT VOLUME 8.2 fl (7.5-11.1); PLATELET COUNT 303 10^3/uL (134-434); RBC 2.74 M/mm3 (3.60-5.2); WHITE BLOOD COUNT 14.9 K/mm3 (4.0-10.0)
[2023-03-07] MEDS: ENOXAPARIN NA (PORCINE) 40 MG/0.4 ML DISP.SYRIN SQ SCH (09:24)
[2023-03-07 09:37] LABS: CALCIUM 9.9 mg/dL (8.5-10.1)
[2023-03-07 09:38] LABS: BLOOD UREA NITROGEN 48.5 mg/dL (7-18); MAGNESIUM 2.2 mg/dL (1.8-2.4)
[2023-03-07 09:41] LABS: CREATININE 0.7 mg/dL (0.55-1.3)
[2023-03-07 09:42] LABS: TOT PROT 5.9 g/dl (6.4-8.2)
[2023-03-07 09:43] LABS: BILIRUBIN,TOTAL 0.2 mg/dL (0.2-1)
[2023-03-07 10:32] LABS: ANISOCYTOSIS 2+; MACROCYTOSIS 0
[2023-03-07] MEDS: AMINO ACIDS/PROTEIN HYDROLYS 30 ML LIQUID.PKT GT SCH ×2 (10:41→17:37)
[2023-03-07] MEDS: ASCORBIC ACID 500 MG/5 ML UNIT DOSE CUP GT SCH (10:41)
[2023-03-07] MEDS: FAMOTIDINE 40 MG/5 ML ORAL SUSPENSION GT SCH (11:30)
[2023-03-07] MEDS: ACETAMINOPHEN 650 MG/20.3 ML ORAL SOLUTION (CUPS) GT PRN ×2 (11:31→21:45)
[2023-03-07] MEDS: COLLAGENASE CLOSTRIDIUM HIST. 30 GRAMS TUBE TP SCH (14:39)
[2023-03-08] MEDS: MEROPENEM 1 GM in DEXTROSE 5%-WATER 100 ML IVPB SCH ×3 (02:30→17:30)
[2023-03-08] MEDS: MIDODRINE HCL 2.5 MG, MIDODRINE HCL 5 MG GT SCH ×3 (05:43→22:09)
[2023-03-08] MEDS: LEVOTHYROXINE 100 MCG, LEVOTHYROXINE 75 MCG GT SCH (06:10)
[2023-03-08 08:51] LABS: BASO % 0.8 % (0-2.0); EOS % 0.3 % (0-4.5); HEMATOCRIT 25.2 % (32.4-45.2); HEMOGLOBIN 8.3 GM/dL (10.7-15.3); LYMPH % 19.8 % (8-40); MCHC 32.8 g/dl (32.0-36.0); MEAN CELL VOLUME 88.6 fl (80-96); MONO % 11.7 % (3.8-10.2); NEUT % 67.4 % (42.8-82.8); PLATELET COUNT 313 10^3/uL (134-434); RBC 2.85 M/mm3 (3.60-5.2); RDW 20.6 % (11.6-15.6); WHITE BLOOD COUNT 17.3 K/mm3 (4.0-10.0)
[2023-03-08 09:21] LABS: ALBUMIN 1.1 g/dl (3.4-5.0); BLOOD UREA NITROGEN 51.1 mg/dL (7-18); CREATININE 0.7 mg/dL (0.55-1.3)
[2023-03-08 09:22] LABS: BILIRUBIN,TOTAL 0.2 mg/dL (0.2-1); TOT PROT 6.2 g/dl (6.4-8.2)
[2023-03-08 09:23] LABS: CALCIUM 10.6 mg/dL (8.5-10.1); MAGNESIUM 2.4 mg/dL (1.8-2.4)
[2023-03-08] MEDS: ENOXAPARIN NA (PORCINE) 40 MG/0.4 ML DISP.SYRIN SQ SCH (09:51)
[2023-03-08] MEDS: AMINO ACIDS/PROTEIN HYDROLYS 30 ML LIQUID.PKT GT SCH ×2 (09:51→17:06)
[2023-03-08] MEDS: FAMOTIDINE 40 MG/5 ML ORAL SUSPENSION GT SCH (09:52)
[2023-03-08] MEDS: ASCORBIC ACID 500 MG/5 ML UNIT DOSE CUP GT SCH (09:52)
[2023-03-08] MEDS: COLLAGENASE CLOSTRIDIUM HIST. 30 GRAMS TUBE TP SCH (09:53)
[2023-03-08] MEDS ORDERED: ACETAMINOPHEN 1000 MG/100 ML BAG IVPB ONE (14:13)
[2023-03-08] MEDS ORDERED: FUROSEMIDE 40 MG/4 ML INJECTABLE VIAL IVPUSH ONE (14:35)
[2023-03-08] MEDS ORDERED: ALBUTEROL SO4 2.5/IPRATROPIUM 0.5 INH SOL 3 ML VIAL.NEB. NEB ONE (14:39)
[2023-03-08] MEDS: SODIUM CHLORIDE 0.45% 1,000 ML IV SCH (14:47)
[2023-03-08 15:42] LABS: N-TERMINAL BNP 2408.9 pg/ml (5-450)
[2023-03-08] MEDS: ACETAMINOPHEN 650 MG/20.3 ML ORAL SOLUTION (CUPS) GT PRN (22:10)
[2023-03-09] MEDS: MEROPENEM 1 GM in DEXTROSE 5%-WATER 100 ML IVPB SCH ×3 (02:16→17:56)
[2023-03-09] MEDS: MIDODRINE HCL 2.5 MG, MIDODRINE HCL 5 MG GT SCH ×3 (06:10→21:18)
[2023-03-09] MEDS: LEVOTHYROXINE 100 MCG, LEVOTHYROXINE 75 MCG GT SCH (06:53)
[2023-03-09] MEDS: ALBUTEROL SO4 2.5/IPRATROPIUM 0.5 INH SOL 3 ML VIAL.NEB. NEB SCH ×4 (08:15→20:47)
[2023-03-09] MEDS: ENOXAPARIN NA (PORCINE) 40 MG/0.4 ML DISP.SYRIN SQ SCH (09:57)
[2023-03-09] MEDS: FAMOTIDINE 40 MG/5 ML ORAL SUSPENSION GT SCH (09:58)
[2023-03-09] MEDS: AMINO ACIDS/PROTEIN HYDROLYS 30 ML LIQUID.PKT GT SCH ×2 (09:58→17:56)
[2023-03-09] MEDS: ASCORBIC ACID 500 MG/5 ML UNIT DOSE CUP GT SCH (09:58)
[2023-03-09] MEDS: MULTIVIT-MINERALS ORAL LIQUID GT SCH (09:58)
[2023-03-09] MEDS: COLLAGENASE CLOSTRIDIUM HIST. 30 GRAMS TUBE TP SCH (09:59)
[2023-03-09] MEDS ORDERED: morphine SULFATE 4 MG/ML VIAL IVPUSH PRN (10:05)
[2023-03-09 10:09] LABS: BASO % 0.7 % (0-2.0); EOS % 0.1 % (0-4.5); HEMATOCRIT 22.4 % (32.4-45.2); HEMOGLOBIN 7.3 GM/dL (10.7-15.3); LYMPH % 19.5 % (8-40); MCHC 32.4 g/dl (32.0-36.0); MEAN CELL VOLUME 89.5 fl (80-96); MEAN PLT VOLUME 8.5 fl (7.5-11.1); MONO % 10.4 % (3.8-10.2); NEUT % 69.3 % (42.8-82.8); PLATELET COUNT 265 10^3/uL (134-434); RDW 20.3 % (11.6-15.6); WHITE BLOOD COUNT 18.1 K/mm3 (4.0-10.0)
[2023-03-09 10:20] LABS: CALCIUM 9.9 mg/dL (8.5-10.1)
[2023-03-09 10:21] LABS: ALBUMIN 1.1 g/dl (3.4-5.0); BLOOD UREA NITROGEN 49.6 mg/dL (7-18); MAGNESIUM 2.4 mg/dL (1.8-2.4)
[2023-03-09 10:24] LABS: CREATININE 0.7 mg/dL (0.55-1.3)
[2023-03-09 10:26] LABS: BILIRUBIN,TOTAL 0.3 mg/dL (0.2-1); TOT PROT 5.8 g/dl (6.4-8.2)
[2023-03-09] MEDS: SODIUM CHLORIDE 0.45% 1,000 ML IV SCH (14:47)
[2023-03-10] MEDS ORDERED: MEROPENEM 1 GM VIAL (RESTRICTED TO ID) IVPB ONE (02:14)
[2023-03-10] MEDS: MEROPENEM 1 GM in DEXTROSE 5%-WATER 100 ML IVPB SCH ×3 (02:21→18:49)
[2023-03-10] MEDS: MIDODRINE HCL 2.5 MG, MIDODRINE HCL 5 MG GT SCH ×3 (06:11→23:48)
[2023-03-10] MEDS: LEVOTHYROXINE 100 MCG, LEVOTHYROXINE 75 MCG GT SCH (06:12)
[2023-03-10] MEDS: ALBUTEROL SO4 2.5/IPRATROPIUM 0.5 INH SOL 3 ML VIAL.NEB. NEB SCH ×4 (07:25→20:27)
[2023-03-10] MEDS: AMINO ACIDS/PROTEIN HYDROLYS 30 ML LIQUID.PKT GT SCH ×2 (08:11→18:50)
[2023-03-10 09:56] LABS: HEMOGLOBIN 7.8 GM/dL (10.7-15.3); MCH 28.3 pg (25.7-33.7); MCHC 30.1 g/dl (32.0-36.0); MEAN CELL VOLUME 94.3 fl (80-96); MEAN PLT VOLUME 7.9 fl (7.5-11.1); PLATELET COUNT 358 10^3/uL (134-434); RBC 2.76 M/mm3 (3.60-5.2); RDW 20.7 % (11.6-15.6); WHITE BLOOD COUNT 23.6 K/mm3 (4.0-10.0)
[2023-03-10 10:22] LABS: ALBUMIN 1.3 g/dl (3.4-5.0); BLOOD UREA NITROGEN 52.5 mg/dL (7-18); CALCIUM 9.9 mg/dL (8.5-10.1); MAGNESIUM 2.7 mg/dL (1.8-2.4)
[2023-03-10 10:25] LABS: CREATININE 0.8 mg/dL (0.55-1.3)
[2023-03-10 10:26] LABS: BILIRUBIN,TOTAL 0.6 mg/dL (0.2-1); TOT PROT 6.4 g/dl (6.4-8.2)
[2023-03-10 11:01] LABS: ANISOCYTOSIS 0; MACROCYTOSIS 1+
[2023-03-10] MEDS: FAMOTIDINE 40 MG/5 ML ORAL SUSPENSION GT SCH (11:12)
[2023-03-10] MEDS: MULTIVIT-MINERALS ORAL LIQUID GT SCH (11:12)
[2023-03-10] MEDS: ASCORBIC ACID 500 MG/5 ML UNIT DOSE CUP GT SCH (11:12)
[2023-03-10] MEDS: COLLAGENASE CLOSTRIDIUM HIST. 30 GRAMS TUBE TP SCH (11:12)
[2023-03-10] MEDS: ENOXAPARIN NA (PORCINE) 40 MG/0.4 ML DISP.SYRIN SQ SCH (11:12)
[2023-03-10] MEDS ORDERED: VANCOMYCIN PREMIX 1.5 GM 1,500 MG/300 ML BAG IVPB ONE (12:29)
[2023-03-10] MEDS: MORPHINE SULFATE/0.9% NACL/PF 100 MG/100 ML BAG IVPB SCH (12:31)
[2023-03-10 14:13] VITALS: RESP 20
[2023-03-11] MEDS: MEROPENEM 1 GM in DEXTROSE 5%-WATER 100 ML IVPB SCH ×3 (03:09→19:01)
[2023-03-11 05:36] VITALS: TEMP 98.7
[2023-03-11] MEDS: MIDODRINE HCL 2.5 MG, MIDODRINE HCL 5 MG GT SCH ×2 (06:42→15:03)
[2023-03-11] MEDS: LEVOTHYROXINE 100 MCG, LEVOTHYROXINE 75 MCG GT SCH (06:44)
[2023-03-11] MEDS: ALBUTEROL SO4 2.5/IPRATROPIUM 0.5 INH SOL 3 ML VIAL.NEB. NEB SCH ×4 (08:00→19:50)
[2023-03-11 09:11] LABS: HEMATOCRIT 24.4 % (32.4-45.2); HEMOGLOBIN 7.4 GM/dL (10.7-15.3); MCH 29.2 pg (25.7-33.7); MCHC 30.1 g/dl (32.0-36.0); MEAN CELL VOLUME 96.8 fl (80-96); MEAN PLT VOLUME 7.8 fl (7.5-11.1); PLATELET COUNT 370 10^3/uL (134-434); RBC 2.52 M/mm3 (3.60-5.2); RDW 20.3 % (11.6-15.6)
[2023-03-11 09:38] LABS: ALBUMIN 1.3 g/dl (3.4-5.0); CALCIUM 9.8 mg/dL (8.5-10.1); MAGNESIUM 2.9 mg/dL (1.8-2.4)
[2023-03-11 09:39] LABS: BLOOD UREA NITROGEN 58.7 mg/dL (7-18)
[2023-03-11 09:41] LABS: CREATININE 1.3 mg/dL (0.55-1.3)
[2023-03-11 09:43] LABS: BILIRUBIN,TOTAL 0.2 mg/dL (0.2-1); TOT PROT 6.2 g/dl (6.4-8.2)
[2023-03-11 09:47] LABS: ANISOCYTOSIS 1+; MACROCYTOSIS 1+
[2023-03-11] MEDS ORDERED: SODIUM ZIRCONIUM CYCLOSILICATE (LOKELMA) 5 GM PACKET GT ONE (10:00)
[2023-03-11] MEDS: MULTIVIT-MINERALS ORAL LIQUID GT SCH (11:25)
[2023-03-11] MEDS: ASCORBIC ACID 500 MG/5 ML UNIT DOSE CUP GT SCH (11:25)
[2023-03-11] MEDS: ENOXAPARIN NA (PORCINE) 40 MG/0.4 ML DISP.SYRIN SQ SCH (11:26)
[2023-03-11] MEDS: AMINO ACIDS/PROTEIN HYDROLYS 30 ML LIQUID.PKT GT SCH ×2 (11:26→17:49)
[2023-03-11] MEDS: FAMOTIDINE 40 MG/5 ML ORAL SUSPENSION GT SCH (11:26)
[2023-03-11] MEDS: MORPHINE SULFATE/0.9% NACL/PF 100 MG/100 ML BAG IVPB SCH (13:28)
[2023-03-11] MEDS: COLLAGENASE CLOSTRIDIUM HIST. 30 GRAMS TUBE TP SCH (13:29)
[2023-03-11] MEDS ORDERED: SODIUM CHLORIDE 500 ML IV STA (13:55)
[2023-03-11 15:27] VITALS: BP 65/25; PULSE 79
[2023-03-11] MEDS ORDERED: ACETAMINOPHEN 1000 MG/100 ML BAG IVPB PRN (18:04)
[2023-03-12] MEDS: ALBUTEROL SO4 2.5/IPRATROPIUM 0.5 INH SOL 3 ML VIAL.NEB. NEB SCH (08:01)
[2023-03-12] MEDS ORDERED: LORazepam 2 MG/ML SDV VIAL IVPUSH PRN (08:17)
[2023-03-12] MEDS: MORPHINE SULFATE/0.9% NACL/PF 100 MG/100 ML BAG IVPB SCH (12:02)
[2023-03-12] MEDS: COLLAGENASE CLOSTRIDIUM HIST. 30 GRAMS TUBE TP SCH (12:03)
== END 2023-03-12 13:50 | disposition expired | DRG 853 ==
LOC: JER 15:33 → JERBED 17:52 → JICU 01-24 05:01 → J8W 02-09 23:08 → UNDODISIN 03-01 19:06
PROVIDERS: ADMIT Internal Medicine; ATTEND Nurse Practitioner Family
PROC: 5A1955Z Respiratory Ventilation, Greater than 96 Consecutive Hours (ICD-10-PCS; 2023-01-24)
PROC: 0BH17EZ Insertion of Endotracheal Airway into Trachea, Via Natural or Artificial Opening (ICD-10-PCS; 2023-01-24)
PROC: 30233N1 Transfusion of Nonautologous Red Blood Cells into Peripheral Vein, Percutaneous Approach (ICD-10-PCS; 2023-01-28)
PROC: 0D1N0Z4 Bypass Sigmoid Colon to Cutaneous, Open Approach (ICD-10-PCS; 2023-01-29)
PROC: 05HM33Z Insertion of Infusion Device into Right Internal Jugular Vein, Percutaneous Approach (ICD-10-PCS; 2023-01-29)
PROC: B543ZZA Ultrasonography of Right Jugular Veins, Guidance (ICD-10-PCS; 2023-01-29)
PROC: 0DTG0ZZ Resection of Left Large Intestine, Open Approach (ICD-10-PCS; principal; 2023-01-29 16:00)
PROC: 0DH63UZ Insertion of Feeding Device into Stomach, Percutaneous Approach (ICD-10-PCS; 2023-02-23)
PROC: BD12ZZZ Fluoroscopy of Stomach (ICD-10-PCS; 2023-02-23)
PROC: 0D20XUZ Change Feeding Device in Upper Intestinal Tract, External Approach (ICD-10-PCS; 2023-02-27)
DX: A41.9 Sepsis, unspecified organism (principal); J18.9 Pneumonia, unspecified organism; L89.154 Pressure ulcer of sacral region, stage 4; R65.21 Severe sepsis with septic shock; U07.1 COVID-19; N17.0 Acute kidney failure with tubular necrosis; J96.01 Acute respiratory failure with hypoxia; N39.0 Urinary tract infection, site not specified; K57.20 Diverticulitis of large intestine with perforation and abscess without bleeding; Z68.41 Body mass index [BMI] 40.0-44.9, adult; C18.9 Malignant neoplasm of colon, unspecified; E87.0 Hyperosmolality and hypernatremia; K94.23 Gastrostomy malfunction; R00.1 Bradycardia, unspecified; K66.8 Other specified disorders of peritoneum; E87.6 Hypokalemia; D64.9 Anemia, unspecified; E03.9 Hypothyroidism, unspecified; N18.9 Chronic kidney disease, unspecified; Z66 Do not resuscitate; E87.70 Fluid overload, unspecified; B96.20 Unspecified Escherichia coli [E. coli] as the cause of diseases classified elsewhere; I48.91 Unspecified atrial fibrillation; I10 Essential (primary) hypertension; Y83.9 Surgical procedure, unspecified as the cause of abnormal reaction of the patient, or of later complication, without mention of misadventure at the time of the procedure
CPT/HCPCS: 0241U-QW; 36415; 36430; 36600; 49440; 71045-TC-FY; 74018-TC-FY; 74019-TC-FY; 74176-TC; 80048; 80053; 80061; 81003; 82150; 82248; 82272; 82436; 82550; 82553; 82570; 82803; 82962; 83516; 83520; 83605; 83690; 83735; 83880; 84100; 84133; 84155; 84165; 84300; 84439; 84443; 84484; 85025; 85027; 85610; 85651; 85730; 86038; 86140; 86225; 86256; 86850; 86900; 86901; 86922; 87040; 87070; 87077; 87086; 87186; 87205; 88307-TC; 88309-TC; 93005; 93010; 93306-TC; 94002; 94640; 94761; 97162-GP; 99285-25; C9803-CS; G0480; J1100; J1644; J3490; P9038; P9047; P9058; U0003; U0005